=== PATIENT | female | born 1960 | race Caucasian/White ===

== ENCOUNTER → 2016-06-30 | Outpatient (CLI) | payer BC ==
[~2016-06-30] MED LIST: CHOLESTEROL MED; MULT-963 PO; ROSU5TAB PO
--- NOTE | 2016-07-01 13:21 | Diagnostic Imaging Report ---
Bilateral screening mammogram. The current study was also evaluated with a Computer Aided Detection (CAD) system. INDICATION: Screening. No current complaints stated on the questionnaire. COMPARISON: 05/28/2015. FINDINGS: The breasts are composed of scattered fibroglandular densities. There are occasional benign-appearing calcifications. Allowing for technique and positional differences, no suspicious change is seen. IMPRESSION: No significant change. ACR BI-RADS Category 2: Benign findings. Result letter will be mailed to the patient. Note: At least 10% of breast cancer is not imaged by mammography. Dictated by: Dictated on workstation # [id number]
== END ==
LOC: RAD 10:12
PROVIDERS: ATTEND Internal Medicine
DX: Z12.31 Encounter for screening mammogram for malignant neoplasm of breast (principal)

== ENCOUNTER → 2016-12-29 | Outpatient (CLI) | payer BC ==
[~2016-12-29] MED LIST changes: +ASCO-262 PO; +CALC600T12 PO; +MULT1CAP27 PO; +OMEG100032 PO; +ROSU10TA24 PO
--- NOTE | 2016-12-29 17:19 | Diagnostic Imaging Report ---
EXAMINATION: SACRUM AND COCCYX INDICATION: Sacrococcygeal pain. COMPARISON: None. FINDINGS: No fracture or malalignment. Soft tissue shadows are unremarkable. Grade 1 anterolisthesis of L5 on S1. IMPRESSION: No acute radiographic findings in the sacrum or coccyx. Dictated by: Dictated on workstation # [id number]
== END ==
LOC: RAD 16:36
PROVIDERS: ATTEND Internal Medicine
DX: M53.3 Sacrococcygeal disorders, not elsewhere classified (principal)
CPT/HCPCS: 72220

== ENCOUNTER 2017-03-10 05:29 | Outpatient (CLI) | payer BC ==
[~2017-03-10] VITALS: Ht 170.2 cm; Wt 81.6 kg
[~2017-03-10 05:29] MED LIST changes: -ASCO-262 PO; -CALC600T12 PO; -MULT1CAP27 PO; -OMEG100032 PO; -ROSU10TA24 PO
[2017-03-10] MEDS ORDERED: ASCO-262 PO (10:37)
[2017-03-10] MEDS ORDERED: ROSU10TA24 PO (10:37)
[2017-03-10] MEDS ORDERED: OMEG100032 PO (10:37)
[2017-03-10] MEDS ORDERED: CALC600T12 PO (10:37)
[2017-03-10] MEDS ORDERED: MULT1CAP27 PO (10:37)
== END 2017-03-10 10:39 ==
LOC: PREOP 05:29
PROVIDERS: ATTEND Surgery
DX: Z01.818 Encounter for other preprocedural examination (principal); Z12.11 Encounter for screening for malignant neoplasm of colon

== ENCOUNTER 2017-03-14 08:17 | Day surgery (SDC) | payer BC ==
[~2017-03-14] VITALS: Ht 170.2 cm; Wt 81.6 kg
[~2017-03-14 08:17] MED LIST changes: +ASCO-262 PO; +CALC600T12 PO; +MULT1CAP27 PO; +OMEG100032 PO; +ROSU10TA24 PO
--- OUTSIDE RECORDS SUMMARY | 2017-03-14 08:22 | XMS REPORT | Continuity of Care Document ---
Author Author [facility] Organization [facility] Address Unknown Phone Unavailable Allergies Active Description Code Type Severity Reaction Onset Reported/Identified Relationship to Patient Clinical Status Yes No Known Drug Allergies [id number] Drug Allergy Unknown N/ A 03/22/2012 Medications Problems Date Dx Coded Attending Type Code Diagnosis Diagnosed By 04/25/2014 Ot V76.12 04/25/2014 WLILA WATSON DOI Ot V76.12 05/19/2014 WATSON DO TATI Ot V76.12 06/16/2015 WATSONBALWINDER DE LA CRUZ TATI Ot Z12.31 11/25/2015 WATSON DO TATI Ot V76.12 OTH SCREEN MAMMO-MALIGN NEOPLASM OF SAI 11/25/2015 WATSONBALWINDER DE LA CRUZ TATI Ot V76.12 OTH SCREEN MAMMO-MALIGN NEOPLASM OF SAI 11/25/2015 WATSONBALWINDER DE LA CRUZ TATI Ot Z12.31 ENCNTR SCREEN MAMMOGRAM FOR MALIGNANT NE 11/25/2015 ARABELLA JUNG APRN Ot S61.411A LACERATION WITHOUT FOREIGN BODY OF RIGHT 11/25/2015 ARABELLA JUNG APRN Ot W25.XXXA CONTACT WITH [place] GL[place], INITIAL ENCOUN 11/25/2015 ARABELLA UJNG APRN Ot Y92.010 KITCHEN OF SINGLE-FAMILY (PRIVATE) HOUSE 11/25/2015 ARABELLA JUNG APRN Ot Y93.G1 ACTIVITY, FOOD PREPARATION AND CLEAN UP 11/25/2015 ARABELLA JUNG APRN Ot Y99.8 OTHER EXTERNAL CAUSE STATUS 11/25/2015 ARABELLA JUNG APRN Ot Z23 ENCOUNTER FOR IMMUNIZATION 11/26/2015 ARABELLA JUNG APRN Ot S61.411A LACERATION WITHOUT FOREIGN BODY OF RIGHT 11/26/2015 ARABELLA JUNG APRN Ot W25.XXXA CONTACT WITH [place]ARP [place], INITIAL ENCOUN 11/26/2015 ARABELLA JUNG APRN Ot Y92.010 KITCHEN OF SINGLE-FAMILY (PRIVATE) HOUSE 11/26/2015 ARABELLA JUNG APRN Ot Y93.G1 ACTIVITY, FOOD PREPARATION AND CLEAN UP 11/26/2015 ARABELLA JUNG CORE DRIER Ot Y99.8 OTHER EXTERNAL CAUSE STATUS 11/26/2015 ARABELLA JUNG CORE DRIER Ot Z23 ENCOUNTER FOR IMMUNIZATION 12/05/2015 WILLA WATSON DOI Ot V76.12 OTH SCREEN MAMMO-MALIGN NEOPLASM OF SAI 12/05/2015 WATSONWILLA BRITT DOI Ot V76.12 OTH SCREEN MAMMO-MALIGN NEOPLASM OF SAI 12/05/2015 SHIRLEY DE LA CRUZ TATI Ot Z12.31 ENCNTR SCREEN MAMMOGRAM FOR MALIGNANT NE 12/09/2015 SAI TORRES, PORSCHE Mcclure Ot S61.411D LACERATION WITHOUT FOREIGN BODY OF RIGHT 05/28/2016 FRANCO RÍOS Ot S61.412A LACERATION WITHOUT FOREIGN BODY OF LEFT 05/28/2016 FRANCO RÍOS Ot W25.XXXA CONTACT WITH SHARP GLASS, INITIAL ENCOUN 05/28/2016 FRANCO RÍOS Ot Y93.G1 ACTIVITY, FOOD PREPARATION AND CLEAN UP 05/28/2016 FRANCO RÍOS L Ot Y99.8 OTHER EXTERNAL CAUSE STATUS 05/30/2016 FRANCO RÍOS Ot S61.412A LACERATION WITHOUT FOREIGN BODY OF LEFT 05/30/2016 FRANCO RÍOS Ot W25.XXXA CONTACT WITH SHARP GLASS, INITIAL ENCOUN 05/30/2016 FRANCO RÍOS L Ot Y93.G1 ACTIVITY, FOOD PREPARATION AND CLEAN UP 05/30/2016 FRANCO RÍOS L Ot Y99.8 OTHER EXTERNAL CAUSE STATUS 06/09/2016 GREGORY TORRES, YESSENIA Herring Ot S61.411D LACERATION WITHOUT FOREIGN BODY OF RIGHT 07/01/2016 SHIRLEY DE LA CRUZ TATI Ot Z12.31 ENCNTR SCREEN MAMMOGRAM FOR MALIGNANT NE 07/01/2016 SHIRLEY DE LA CRUZ TATI Ot Z12.31 ENCNTR SCREEN MAMMOGRAM FOR MALIGNANT NE 07/14/2016 SHIRLEY DE LA CRUZ TATI Ot Z12.31 ENCNTR SCREEN MAMMOGRAM FOR MALIGNANT NE 01/02/2017 SHIRLEY DE LA CRUZ TATI Ot M53.3 SACROCOCCYGEAL DISORDERS, NOT ELSEWHERE 01/13/2017 SHIRLEY DE LA CRUZ TATI Ot M53.3 SACROCOCCYGEAL DISORDERS, NOT ELSEWHERE Procedures Results Encounters ACCT No. Visit Date/Time Discharge Status Pt. Type Provider Facility Loc./Unit Complaint [id number] 12/29/2016 16:36:00 2016 23:59:59 CLS Outpatient WATSON DO, TATI [facility] RAD TAILBONE PAIN [id number] 06/30/2016 10:12:00 2016 23:59:59 CLS Outpatient WATSON DO, TATI [facility] RAD SCREENING [id number] 06/08/2016 16:29:00 2015 17:34:00 DIS Outpatient YESSENIA JENKINS MD [facility] ER REMOVAL OF STITCHES [id number] 05/28/2016 19:50:00 2015 21:26:00 DIS Emergency FRANCO RÍOS [facility] ER CUT FINGER [id number] 12/05/2015 08:35:00 2015 08:50:00 DIS Emergency PORSCHE GIBBS MD [facility] ER [id number] 11/25/2015 21:39:00 2015 22:30:00 DIS Emergency ARABELLA JUNG APRN [facility] ER [id number] 05/28/2015 14:31:00 2014 23:59:59 CLS Outpatient WATSON DO, TATI [facility] RAD [id number] 04/25/2014 13:53:00 2013 23:59:59 CLS Outpatient WATSON DO, TATI [facility] RAD [id number] 03/19/2013 09:04:00 2012 23:59:59 CLS Outpatient WATSON DO, TATI [facility] RAD [id number] 03/14/2017 10:45:00 PEN Preadmit TWYLA PINEDO DO [facility] ENDO SCREENING [id number] 12/24/2009 11:16:00 Document Registration
[2017-03-14 08:43] VITALS: BP 105/77
[2017-03-14] MEDS ORDERED: LACTATED RINGERS 1,000 ML IV ONE (08:45)
--- NOTE | 2017-03-14 09:19 | Progress Note-Pre Operative ---
Pre-Operative Progress Note H&P Reviewed The H&P was reviewed, patient examined and no changes noted. Date Seen by Provider: Mar 14, 2017 Time Seen by Provider: 09:18 Date H&P Reviewed: Mar 14, 2017 Time H&P Reviewed: 09:19 Pre-Operative Diagnosis: screening colonoscopy TWYLA PINEDO DO Mar 14, 2017 09:19
[2017-03-14] MEDS ORDERED: PROPOFOL INJECTION 50 ML IV ONE (10:31)
[2017-03-14] MEDS ORDERED: MIDAZOLAM 5 MG/5 ML (VERSED) VIAL ONE (10:31)
--- NOTE | 2017-03-14 11:19 | Progress Note-Post Operative ---
Post-Operative Progess Note Surgeon (s)/Artificial Limb Maker (s) Surgeon TWYLA PINEDO DO Artificial Limb Maker: n/a Pre-Operative Diagnosis screening colonoscopy Post-Operative Diagnosis sigmoid colon polyp Procedure & Operative Findings Date of Procedure 03/14/17 Procedure Performed/Findings colonoscopy with hot bx polypectomy of sigmoid colon Anesthesia Type per winding inspector and tester Estimated Blood Loss Estimated blood loss (mL): none Specimens/Packing Specimens Removed sigmoid colon polyp TWYLA PINEDO DO Mar 14, 2017 11:19
--- NOTE | 2017-03-14 11:21 | Discharge Inst-Simple/Standard ---
Discharge Inst-Standard Patient Instructions/Follow Up Plan of Care/Instructions/FU: 2 weeks Hilario Activity as Tolerated: Yes Discharge Diet: Regular Diet TWYLA PINEDO DO Mar 14, 2017 11:20
[2017-03-14 11:35] VITALS: BP 112/72
[2017-03-14 12:05] VITALS: BP 112/72
[2017-03-14 12:10] VITALS: BP 112/72
--- NOTE | 2017-03-15 01:25 | OPERATIVE REPORT ---
DATE OF SERVICE: 03/14/2017 PREOPERATIVE DIAGNOSIS: Screening colonoscopy, family history of colon cancer. POSTOPERATIVE DIAGNOSIS: Sigmoid colon polyp. PROCEDURE: Colonoscopy with hot biopsy polypectomy of sigmoid colons. SURGEON: Twyla Rich DO ANESTHESIA: Per FIRE OFFICIAL. ESTIMATED BLOOD LOSS: None. COMPLICATIONS: None. INDICATIONS: The patient is a 56-year-old female for screening colonoscopy. She understands risks and benefits of procedure and wished to proceed with procedure. Consent was signed on the chart. DESCRIPTION OF PROCEDURE: The patient was taken to the endoscopy suite, placed in left lateral recumbent position. Timeout was performed. Digital rectal exam was performed and there were no palpable polyps, masses or ulcerations. Scope was inserted in the rectum and advanced all the way to the cecum with minimal difficulty. Prep was adequate. Scope was then slowly retracted back. There were no polyps, mass or ulcerations in the cecum, ascending, transverse colon. There were no polyps, mass or ulcerations within the descending colon. There was a small polyp within the sigmoid colon, which hot biopsy polypectomy was performed. Scope was continued slowly retracted back into the rectum where it was also retroflexed noting no other pathology. Scope was returned to its normal position, slowly withdrawn until completely removed. The patient tolerated the procedure well without any complications. She was taken to the recovery room in stable condition. RECOMMENDATIONS: The patient will need repeat colonoscopy in 5 years due to family history of colon cancer and sigmoid colon polyp. The patient will follow up in the office in approximately 2 weeks to discuss pathology results and see if she has any further questions. Job ID: [id number] DocumentID: [id number] Dictated Date: 03/14/2017 11:24:49 Aircraft Assembler Date: 03/15/2017 01:24:38 Dictated By: TWYLA RICH DO
== END 2017-03-14 12:10 | disposition home or self-care (01) ==
LOC: ENDO 08:17
PROVIDERS: ATTEND Surgery
DX: Z79.899 Other long term (current) drug therapy; Z80.0 Family history of malignant neoplasm of digestive organs; E78.5 Hyperlipidemia, unspecified; K63.5 Polyp of colon; Z12.11 Encounter for screening for malignant neoplasm of colon

== ENCOUNTER → 2017-07-06 | Outpatient (RCR) | payer BC ==
[~2017-07-06] MED LIST changes: -ROSU10TA24 PO; +ROSU10TA26 PO
== END | disposition home or self-care (01) ==
PROVIDERS: ATTEND Orthopaedic Surgery Orthopaedic Surgery of the Spine
DX: M47.816 Spondylosis without myelopathy or radiculopathy, lumbar region (principal); M43.16 Spondylolisthesis, lumbar region

== ENCOUNTER → 2017-07-11 | Outpatient (CLI) | payer BC ==
--- NOTE | 2017-07-11 10:28 | Diagnostic Imaging Report ---
INDICATION: Routine screening. Comparison is made with prior study from 06/30/2016 and 05/28/2015. The current study was also evaluated with a Computer Aided Detection (CAD) system. FINDINGS: Scattered parenchymal densities are identified bilaterally. No dominant mass or malignant appearing microcalcifications are seen. The axillae are unremarkable. IMPRESSION: No mammographic features suspicious for malignancy are identified. ACR BI-RADS Category 1: Negative. Result letter will be mailed to the patient. Note: At least 10% of breast cancer is not imaged by mammography. Dictated by: Dictated on workstation # [id number]
== END ==
LOC: RAD 09:10
PROVIDERS: ATTEND Internal Medicine
DX: Z12.31 Encounter for screening mammogram for malignant neoplasm of breast (principal)
CPT/HCPCS: 77067

== ENCOUNTER 2017-08-30 08:03 | Outpatient (RCR) | payer BC | END 2017-08-30 10:20 | disposition home or self-care (01) | PROVIDERS: ATTEND Orthopaedic Surgery Orthopaedic Surgery of the Spine | DX: M47.816 Spondylosis without myelopathy or radiculopathy, lumbar region (principal); M43.16 Spondylolisthesis, lumbar region ==

== ENCOUNTER → 2018-07-12 | Outpatient (CLI) | payer BC ==
[~2018-07-12] MED LIST changes: -ROSU10TA26 PO; +ROSU10TA27 PO
--- NOTE | 2018-07-12 21:48 | Diagnostic Imaging Report ---
INDICATION: Screening. The current study was also evaluated with a Computer Aided Detection (CAD) system. Comparison made with prior examination 07/11/2017 back through 02/29/2012. 3-D tomosynthesis was performed and reviewed. FINDINGS: There are scattered fibroglandular densities bilaterally. There are a few benign type calcifications. There is no dominant mass, spiculated lesion or suspicious calcification identified. Skin, nipples and axilla are unremarkable. IMPRESSION: Benign. ACR BI-RADS Category 2: Benign findings. Result letter will be mailed to the patient. Note: At least 10% of breast cancer is not imaged by mammography. Dictated by: Dictated on workstation # [id number]
== END ==
LOC: RAD 08:06
PROVIDERS: ATTEND Internal Medicine
DX: Z12.31 Encounter for screening mammogram for malignant neoplasm of breast (principal)
CPT/HCPCS: 77067

== ENCOUNTER → 2020-03-06 | Outpatient (CLI) | payer BC ==
[~2020-03-06] MED LIST changes: -CALC600T12 PO; +CLC600T PO; -ROSU10TA27 PO; +ROSU10TA28 PO
--- NOTE | 2020-03-09 14:16 | Diagnostic Imaging Report ---
Digital mammogram. Bilateral screening This study was compared to the prior exams of 07/12/2018, 07/11/2017 and 06/30/2016. At this time there are no current complaints. The current study was also evaluated with a Computer Aided Detection (CAD) system. FINDINGS: There are scattered fibroglandular densities in both breasts which could obscure a lesion. Overall, there does not appear to have been any significant change when compared to the prior exam. No primary or secondary sign of malignancy is noted. IMPRESSION: There is no radiographic evidence for malignancy ACR BI-RADS Category 1: Negative. Result letter will be mailed to the patient. Note: At least 10% of breast cancer is not imaged by mammography. Dictated by: Dictated on workstation # [id number]
== END ==
LOC: RAD 12:34
PROVIDERS: ATTEND Internal Medicine
DX: Z12.31 Encounter for screening mammogram for malignant neoplasm of breast (principal)
CPT/HCPCS: 77063; 77067

== ENCOUNTER 2020-06-17 04:37 | Inpatient (IN) | payer BC ==
[~2020-06-17] VITALS: Ht 170 cm; Wt 81.7 kg
--- NOTE | 2020-06-17 05:03 | ED Respiratory ---
General Chief Complaint: Respiratory Problems Stated Complaint: COVID+,SOB Source: patient Exam Limitations: no limitations (CHINYERE SOLIS MD) History of Present Illness Date Seen by Provider: Jun 17, 2020 Time Seen by Provider: 05:00 Initial Comments Patient is a 59-year-old female who presents to the emergency department today with a chief complaint of shortness of breath and low oxygen saturations at home and 88%. Patient is on day 12 of quarantine with a positive Covid diagnosis around June 08. Patient states she has been using an inhaler over the course of the last 3 days with minimal relief of her symptoms. She has a productive cough. She denies fevers or chills. She has had nasal congestion without rhinorrhea. Patient denies any GI or symptoms. No swelling in her legs or cramping in her calves. Patient states that she has been on antibiotics within the last couple of days. She is currently on azithromycin as well as Decadron 4 mg p.o. daily. Patient's primary care physician is Dr. Watson. All other review of systems reviewed and negative except as stated above. Timing/Duration: other (3 days) Severity: moderate Prior Episodes/Possible Cause: illness exposure Modifying Factors: Improves With Albuterol Inhaler, Improves With Coughing Associated Symptoms: nasal congestion (CHINYERE SOLIS MD) Allergies and Home Medications Allergies Coded Allergies: No Known Drug Allergies (Unverified , 03/22/12) Home Medications Ascorbate Calcium 500 Mg Tablet, 500 MG PO DAILY, (Reported) Calcium Carbonate 600 Mg Tablet, 600 MG PO DAILY, (Reported) Multivitamin 1 Each Capsule, 1 EACH PO DAILY, (Reported) [place]-3/Dha/Epa/Fish Oil 1,000 Mg Capsule, 1,000 MG PO DAILY, (Reported) Rosuvastatin Calcium 10 Mg Tablet, 10 MG PO DAILY, (Reported) Patient Home Medication List Home Medication List Reviewed: Yes (CHINYERE SOLIS MD) Review of Systems Review of Systems Constitutional: see HPI, malaise EENTM: nose congestion Respiratory: cough, dyspnea on exertion, short of breath Cardiovascular: no symptoms reported Gastrointestinal: no symptoms reported Genitourinary: no symptoms reported : No Musculoskeletal: no symptoms reported Skin: no symptoms reported Psychiatric/Neurological: No Symptoms Reported (CHINYERE SOLIS MD) All Other Systems Reviewed Negative Unless Noted: Yes (CHINYERE SOLIS MD) Past Fmxnisw-Zjhqgu-Najsnd Hx Patient Social History Alcohol Use: Denies Use Recreational Drug Use: No Smoking Status: Former Smoker Type Used: Cigarettes Recent Foreign Travel: No Contact w/Someone Who Travel: No Recent Hopitalizations: No (CHINYERE SOLIS MD) Immunizations Up To Date Tetanus Booster (TDap): Less than 5yrs (CHINYERE SOLIS MD) Seasonal Allergies Seasonal Allergies: No (CHINYERE SOLIS MD) Past Medical History Surgeries: Yes (BREAST REDUCTION) Appendectomy Respiratory: No Cardiac: Yes High Cholesterol Neurological: No Genitourinary: No Gastrointestinal: No Musculoskeletal: No Endocrine: No HEENT: No Cancer: No Psychosocial: No Integumentary: No Blood Disorders: No (CHINYERE SOLIS MD) Physical Exam Vital Signs - First Documented 06/17/20 04:49 Temp 38.0 Pulse 89 Resp 22 B/P (MAP) 120/82 (95) Pulse Ox 93 O2 Delivery Nasal Cannula O2 Flow Rate 4.00 (ROSA KUHN MD) Capillary Refill : (CHINYERE SOLIS MD) Height: 5'7.00" Weight: 180lbs. 0.0oz. [id number]; 28.2 BMI Method:Stated General Appearance: WD/WN, no apparent distress HEENT: PERRL/EOMI Neck: full range of motion, supple, normal inspection Respiratory: lungs clear, normal breath sounds, no respiratory distress, no accessory muscle use, other Cardiovascular: regular rate, rhythm, no murmur (Slightly tachypneic) Gastrointestinal: non tender, soft Extremities: non-tender, normal inspection, no pedal edema, no calf tenderness Neurologic/Psychiatric: no motor/sensory deficits, alert, normal mood/affect, oriented x 3 Skin: normal color, warm/dry (CHINYERE SOLIS MD) Focused Exam Lactate Level 06/17/20 05:00: Lactic Acid Level 2.38*H 06/17/20 07:18: Lactic Acid Level 1.88 (ROSA KUHN MD) Lactic Acid Level Laboratory Tests Test 06/17/20 05:00 06/17/20 07:18 Lactic Acid Level 2.38 MMOL/L (0.50-2.00) *H 1.88 MMOL/L (0.50-2.00) (ROSA KUHN MD) Procedures/Interventions Suture Size: 5-0 (CHINYERE SOLIS MD) Progress/Results/Core Measures Suspected Sepsis SIRS Temperature: Pulse: Respiratory Rate: Laboratory Tests 06/17/20 05:00: White Blood Count 10.8 Blood Pressure / Mean: 06/17/20 05:00: Lactic Acid Level 2.38*H Laboratory Tests 06/17/20 05:00: Creatinine 0.80, Platelet Count 285, Total Bilirubin 0.5 (CHINYERE SOLIS MD) Results/Orders Lab Results Laboratory Tests Test 06/17/20 05:00 06/17/20 07:18 Range/Units White Blood Count 10.8 4.3-11.0 10^3/uL Red Blood Count 4.87 3.80-5.11 10^6/uL Hemoglobin 14.4 11.5-16.0 g/dL Hematocrit 42 35-52 % Mean Corpuscular Volume 87 80-99 fL Mean Corpuscular Hemoglobin 30 25-34 pg Mean Corpuscular Hemoglobin Concent 34 32-36 g/dL Red Cell Distribution Width 12.2 10.0-14.5 % Platelet Count 285 130-400 10^3/uL Mean Platelet Volume 10.5 9.0-12.2 fL Immature Granulocyte % (Auto) 1 % Neutrophils (%) (Auto) 83 H 42-75 % Lymphocytes (%) (Auto) 13 12-44 % Monocytes (%) (Auto) 3 0-12 % Eosinophils (%) (Auto) 0 0-10 % Basophils (%) (Auto) 0 0-10 % Neutrophils # (Auto) 9.0 H 1.8-7.8 10^3/uL Lymphocytes # (Auto) 1.4 1.0-4.0 10^3/uL Monocytes # (Auto) 0.3 0.0-1.0 10^3/uL Eosinophils # (Auto) 0.0 0.0-0.3 10^3/uL Basophils # (Auto) 0.0 0.0-0.1 10^3/uL Immature Granulocyte # (Auto) 0.1 0.0-0.1 10^3/uL D-Dimer 0.33 0.00-0.49 UG/ML Sodium Level 134 L 135-145 MMOL/L Potassium Level 4.2 3.6-5.0 MMOL/L Chloride Level 102 98-107 MMOL/L Carbon Dioxide Level 21 21-32 MMOL/L Anion Gap 11 5-14 MMOL/L Blood Urea Nitrogen 15 7-18 MG/DL Creatinine 0.80 0.60-1.30 MG/DL Estimat Glomerular Filtration Rate > 60 BUN/Creatinine Ratio 19 Glucose Level 159 H 70-105 MG/DL Lactic Acid Level 2.38 *H 1.88 0.50-2.00 MMOL/L Calcium Level 8.7 8.5-10.1 MG/DL Corrected Calcium 9.2 8.5-10.1 MG/DL Total Bilirubin 0.5 0.1-1.0 MG/DL Aspartate Amino Transf (AST/SGOT) 41 H 5-34 U/L Alanine Aminotransferase (ALT/SGPT) 50 0-55 U/L Alkaline Phosphatase 55 40-136 U/L C-Reactive Protein High Sensitivity 5.09 H 0.00-0.50 MG/DL Total Protein 7.3 6.4-8.2 GM/DL Albumin 3.4 3.2-4.5 GM/DL Procalcitonin 0.06 <0.10 NG/ML (ROSA KUHN MD) My Orders Orders - RSOA KUHN MD Blood Culture (06/17/20 06:59) Dexamethasone Injection (Decadron Inje (06/17/20 08:30) Ceftriaxone For Iv Use (Rocephin For I (06/17/20 08:30) (ROSA KUHN MD) Medications Given in ED Current Medications Medications Dose Ordered Sig/Leno Route Start Time Stop Time Status Last Admin Dose Admin Iohexol 100 ml ONCE ONCE IV 06/17/20 06:30 06/17/20 06:31 DC 06/17/20 07:01 74 ML Sodium Chloride 100 ml ONCE ONCE IV 06/17/20 06:30 06/17/20 06:31 DC 06/17/20 07:01 80 ML (ROSA KUHN MD) Vital Signs/I&O 06/17/20 04:49 Temp 38.0 Pulse 89 Resp 22 B/P (MAP) 120/82 (95) Pulse Ox 93 O2 Delivery Nasal Cannula O2 Flow Rate 4.00 (ROSA KUHN MD) Vital Signs/I&O Capillary Refill : (CHINYERE SOLIS MD) Progress Note : Time: 05:05 Progress Note 59-year-old female presents with shortness of breath and hypoxia. Evaluation today includes a physical exam. Patient is noted to be 88 to 89% oxygen saturat ions on room air at presentation. She demonstrates some tachypnea with slightly increased work of breathing. Lungs are clear. Patient bounces up to 93 to 94% on 4 L of oxygen per nasal cannula. Patient evaluation also includes a chest x- ray, CBC, Chem-12, CRP, procalcitonin, blood cultures, lactic acid. Patient will be treated with albuterol MDI. Patient disposition to be determined. [address] Watson; will CT chest and she will admit (CHINYERE SOLIS MD) Progress Note : Time: 08:29 Progress Note I assumed care of this patient from Dr. Solis at 06: 00. Due to fullness in the right hilum a CT of the chest was obtained. The CT demonstrated findings of groundglass opacity consistent with COVID-19 disease. No other acute findings were appreciated. Patient has not yet taken her antibiotics or dexamethasone today. We will give dexamethasone 6 mg IV and Rocephin in the ER. She will continue on a azithromycin on the floor as well. Case was discussed with Dr. Watson and admission orders were written. (ROSA KUHN MD) Diagnostic Imaging Diagonstic Imaging: Xray Plain Films/CT/US/NM/MRI: chest Comments Chest x-ray viewed by me and report reviewed. See report below: NAME: NICHOLAS PEREZ MED REC#: [id number] PT STATUS: REG ER : 1960 PHYSICIAN: CHINYERE SOLIS MD ADMIT DATE: 06/17/20/ER Signed Date of Exam:06/17/20 CHEST 1 VIEW, AP/PA ONLY INDICATION: Short of breath. Positive for COVID Upright chest shows normal heart size and vascularity. There is slight fullness in the right hilum. Adenopathy at this site is a possibility. No peripheral mass or alveolar infiltrate is seen. There are bilateral patchy interstitial infiltrates slightly worse on the right than the left. There is no effusion or pneumothorax. IMPRESSION: There are infiltrates present consistent with COVID pneumonia. There is slight fullness of the right hilum and continued follow-up is recommended. Dictated by: Dictated on workstation # [id number] Dict: 06/17/20 0650 Trans: 06/17/20752 JAGDISH [id number] Interpreted by: DENNIS BAUMAN MD Electronically signed by: DENNIS BAUMAN MD 06/17/203 Diagonstic Imaging: CT Plain Films/CT/US/NM/MRI: chest Comments CT chest viewed by me and report reviewed. See report below: NAME: NICHOLAS PEREZ [facility] REC#: [id number] PT STATUS: REG ER : 1960 PHYSICIAN: CHINYERE SOLIS MD ADMIT DATE: 06/17/20/ER Signed Date of Exam:06/17/20 CT CHEST W PROCEDURE: CT chest with contrast only. TECHNIQUE: Multiple contiguous axial images were obtained through the chest after administration of intravenous contrast. Auto Exposure Controls were utilized during the CT exam to meet ALARA standards for radiation dose reduction. INDICATION: COVID positive. Infiltrates. There are patchy bilateral interstitial and groundglass infiltrates in a pattern consistent with COVID pneumonia. No mass or alveolar infiltrate is seen. There is no effusion or pneumothorax. There is mild cardiomegaly. There is no mediastinal mass or adenopathy. The fullness in the right hilum secondary to prominent vessels. CTA was not performed but no pulmonary embolus is evident. There is no acute bony abnormality. IMPRESSION: There are bilateral infiltrates consistent with COVID pneumonia. No mass or adenopathy is seen. Not mentioned in the body the report is a small hiatal hernia. Dictated by: Dictated on workstation # [id number] Dict: 06/17/20 0709 Trans: 06/17/20752 JAGDISH [id number] Interpreted by: DENNIS BAUMAN MD Electronically signed by: DENNIS BAUMAN MD 06/17/20 075 (ROSA KUHN MD) Departure Communication (Admissions) Time/Spoke to Admitting Phy: 08:20 Dr. Watson (ROSA KUHN MD) Impression Primary Impression: Coronavirus infection Additional Impression: Hypoxia Disposition: ADMITTED INPATIENT Condition: Stable Admissions Decision to Admit Reason: Admit from ER (General) Decision to Admit/Date: Jun 17, 2020 Time/Decision to Admit Time: 06:00 (ROSA KUHN MD) Departure-Patient Inst. Referrals: TATI WATSON DO (PCP/Family) Primary Care Physician CHINYERE SOLIS MD Jun 17, 2020 05:03 ROSA KUHN MD Jun 17, 2020 08:32
[2020-06-17 05:22] LABS: BASOPHILS % (AUTO) 0 % (0-10); EOSINOPHILS % (AUTO) 0 % (0-10); HEMATOCRIT 42 % (35-52); HEMOGLOBIN 14.4 g/dL (11.5-16.0); LYMPHOCYTES # (AUTO) 1.4 10^3/uL (1.0-4.0); LYMPHOCYTES % (AUTO) 13 % (12-44); MEAN CORPUSCULAR HEMOGLOBIN 30 pg (25-34); MEAN CORPUSCULAR HGB CONC 34 g/dL (32-36); MEAN CORPUSCULAR VOLUME 87 fL (80-99); MEAN PLATELET VOLUME 10.5 fL (9.0-12.2); MONOCYTES # (AUTO) 0.3 10^3/uL (0.0-1.0); MONOCYTES % (AUTO) 3 % (0-12); NEUTROPHILS % (AUTO) 83 % (42-75); PLATELET COUNT 285 10^3/uL (130-400); WHITE BLOOD COUNT 10.8 10^3/uL (4.3-11.0)
[2020-06-17] MEDS ORDERED: LORazepam 0.5 MG (ATIVAN) TABLET PO STA (05:25)
[2020-06-17 05:26] LABS: ALBUMIN 3.4 GM/DL (3.2-4.5); CHLORIDE 102 MMOL/L (98-107); POTASSIUM 4.2 MMOL/L (3.6-5.0); SODIUM 134 MMOL/L (135-145)
[2020-06-17 05:27] LABS: CALCIUM 8.7 MG/DL (8.5-10.1)
[2020-06-17 05:29] LABS: GLUCOSE 159 MG/DL (70-105); TOTAL PROTEIN 7.3 GM/DL (6.4-8.2)
[2020-06-17 05:30] LABS: BILIRUBIN,TOTAL 0.5 MG/DL (0.1-1.0); CARBON DIOXIDE 21 MMOL/L (21-32)
[2020-06-17 05:32] LABS: ALKALINE PHOSPHATASE 55 U/L (40-136); GFR ESTIMATED > 60
[2020-06-17 05:33] LABS: BUN/CREATININE RATIO 19
[2020-06-17 05:35] LABS: ALANINE AMINOTRANSFERASE 50 U/L (0-55)
[2020-06-17] MEDS ORDERED: LACTATED RINGERS 1,000 ML IV SCH (05:45)
[2020-06-17] MEDS ORDERED: RT-ALBUTEROL INHALER HFA (VENTOLIN HFA) 18 GM IH SCH (06:00)
[2020-06-17] MEDS ORDERED: IOHEXOL 350 MG/ML 100 ML (OMNIPAQUE 350) VIAL IV ONE (06:30)
[2020-06-17] MEDS ORDERED: HOLD METFORMIN - RECEIVED CONTRAST 20 ML VIAL IV SCH (06:30)
[2020-06-17] MEDS ORDERED: NS 100 ML (IVPB) BAG IV ONE (06:30)
--- NOTE | 2020-06-17 06:47 | NUR ---
PT , AVELINO, CONTACTED REGARDING PT UPDATE.
--- NOTE | 2020-06-17 07:00 | Diagnostic Imaging Report ---
INDICATION: Short of breath. Positive for COVID Upright chest shows normal heart size and vascularity. There is slight fullness in the right hilum. Adenopathy at this site is a possibility. No peripheral mass or alveolar infiltrate is seen. There are bilateral patchy interstitial infiltrates slightly worse on the right than the left. There is no effusion or pneumothorax. IMPRESSION: There are infiltrates present consistent with COVID pneumonia. There is slight fullness of the right hilum and continued follow-up is recommended. Dictated by: Dictated on workstation # [id number]
--- NOTE | 2020-06-17 07:14 | Diagnostic Imaging Report ---
PROCEDURE: CT chest with contrast only. TECHNIQUE: Multiple contiguous axial images were obtained through the chest after administration of intravenous contrast. Auto Exposure Controls were utilized during the CT exam to meet ALARA standards for radiation dose reduction. INDICATION: COVID positive. Infiltrates. There are patchy bilateral interstitial and groundglass infiltrates in a pattern consistent with COVID pneumonia. No mass or alveolar infiltrate is seen. There is no effusion or pneumothorax. There is mild cardiomegaly. There is no mediastinal mass or adenopathy. The fullness in the right hilum secondary to prominent vessels. CTA was not performed but no pulmonary embolus is evident. There is no acute bony abnormality. IMPRESSION: There are bilateral infiltrates consistent with COVID pneumonia. No mass or adenopathy is seen. Not mentioned in the body the report is a small hiatal hernia. Dictated by: Dictated on workstation # [id number]
[2020-06-17] MEDS ORDERED: cefTRIAXone FOR IV USE 1,000 MG in WATER (STERILE) FOR INJECTION 10 ML IV ONE (08:30)
--- NOTE | 2020-06-17 09:47 | NUR ---
Pt is Yarsani. Nurse asked pt about anointing and she desires it. Chronic Disease Epidemiologist notified SEAN mcdowell.
[2020-06-17] MEDS ORDERED: ONDANSETRON 4 MG/2 ML (SDV) Z0FRAN IV PRN (10:00)
[2020-06-17] MEDS ORDERED: CATHETER FLUSH 10 ML SYR IV PRN (10:00)
[2020-06-17] MEDS ORDERED: AZITHROMYCIN 500 MG/NS 250 ML IVPB IV NR ×2 (10:00)
[2020-06-17] MEDS ORDERED: ACETAMINOPHEN 500 MG TAB (TYLENOL) PO PRN (10:00)
[2020-06-17] MEDS: LACTATED RINGERS 1,000 ML IV SCH ×3 (10:35→20:23)
--- NOTE | 2020-06-17 11:15 | History & Physical ---
History of Present Illness HPI/Chief Complaint CC: SOB and lethargy HPI: This is a 62yoWF clinic pt of [facility] who has a PMH of HLP and border line DM who presents with Covid-19 11 days after swab, SOB and lethargy. She was found to have elevated lactic acid due to dehydration and CXR showed some abnormalities so CT scan was obtained and that revealed just Covid-19 ground glass infiltrates. She was placed on IV antibiotics, convalescent plasma, and IV Decadron and will be monitored closely and I will consult Dr. Herbert due to high risk for decompensation. Source: patient, RN/MD Exam Limitations: no limitations Date Seen 06/17/20 Time Seen by a Provider: 09:30 Attending Physician Yari Jansen DO PCP Yari Jansen DO Referring Physician Date of Admission Jun 17, 2020 at 08:24 Home Medications & Allergies Home Medications Reviewed patient Home Medication Reconciliation performed by pharmacy medication reconciliations production technician and/or nursing. Patients Allergies have been reviewed. Allergies Allergies Coded Allergies No Known Drug Allergies ([id number]/11/12) Past Jtpxsqa-Evstyu-Ikscxk Hx Past Med/Social Hx: Reviewed Nursing Past Med/Soc Hx, Reviewed and Corrections made Patient Social History Marrital Status: Employed/Student: employed Alcohol Use: Denies Use Recreational Drug Use: No Smoking Status: Former Smoker Type Used: Cigarettes Recent Foreign Travel: No Contact w/other who traveled: No Recent Hopitalizations: No Recent Infectious Disease Expo: No Immunizations Up To Date Tetanus Booster (TDap): Less than 5yrs Date of Influenza Vaccine: Feb 11, 2021 Seasonal Allergies Seasonal Allergies: No Past Medical History Surgeries: Appendectomy Cardiac: High Cholesterol : No Menopausal Musculoskeletal: Chronic Back Pain Endocrine: Diabetes, Non-Insulin dep History of Blood Disorders: No Review of Systems Constitutional: see HPI, malaise, weakness Respiratory: cough, dyspnea on exertion Physical Exam Physical Exam Vital Signs Vital Signs - First Documented 06/17/20 06/17/20 04:49 13:46 Temp 38.0 Pulse 89 Resp 22 B/P (MAP) 120/82 (95) Pulse Ox 93 O2 Delivery Nasal Cannula O2 Flow Rate 4.00 FiO2 36 Capillary Refill : Less Than 3 Seconds Height, Weight, BMI Height: 5'7.00" Weight: 180lbs. 0.0oz. 81.963653lf; 26.00 BMI Method:Stated General Appearance: WD/WN, Anxious, Mild Distress, Other (acutely ill) Eyes: Bilateral Eye Normal Inspection, Bilateral Eye PERRL HEENT: PERRL/EOMI, Normal ENT Inspection, Pharynx Normal Neck: Full Range of Motion, Normal Inspection, Non Tender, Supple, Carotid Bruit Respiratory: Chest Non Tender, Lungs Clear, No Accessory Muscle Use, No Respiratory Distress, Decreased Breath Sounds Cardiovascular: Regular Rate, Rhythm, No Edema, No Gallop, No JVD, No Murmur, Normal Peripheral Pulses Gastrointestinal: Normal Bowel Sounds, No Organomegaly, No Pulsatile Mass, Non Tender, Soft Back: Normal Inspection, No CVA Tenderness, No Vertebral Tenderness Extremity: Normal Capillary Refill, Normal Inspection, Normal Range of Motion, Non Tender, No Calf Tenderness, No Pedal Edema Neurologic/Psychiatric: Alert, Oriented x3, No Motor/Sensory Deficits, Normal Mood/Affect Skin: Normal Color, Warm/Dry Lymphatic: No Adenopathy Results Results/Procedures Labs Laboratory Tests 06/17/20 05:00 Patient resulted labs reviewed. Assessment/Plan Admission Diagnosis Assessment: COVID-19 PNA Sepsis Hypoxia Bacterial PNA superimposed HLP DM IVF IV abx Dr Herbert consult appreciated High risk for decompensation Lovenox Decadron CVP Admission Status: Inpatient Order (span 2 midnights) Reason for Inpatient Admission: COVID-19 PNA Diagnosis/Problems Diagnosis/Problems (1) Coronavirus infection Status: Acute (2) Hypoxia Status: Acute Clinical Quality Measures DVT/VTE Risk/Contraindication: Risk Factor Score Per Nursin RFS Level Per Nursing on Admit: 4+=Very High YARI JANSEN DO Jun 17, 2020 11:15
--- NOTE | 2020-06-17 11:43 | Pulmonary Consultation ---
History of Present Illness History of Present Illness Date Seen by Provider: Jun 17, 2020 Time Seen by Provider: 10:18 Date of Admission Allergies and Home Medications Allergies Coded Allergies: No Known Drug Allergies (Unverified , 03/22/12) Home Medications Albuterol Sulfate 18 Gm Hfa.aer.ad, 2 PUFF INH QID PRN for SHORTNESS OF BREATH, (Reported) Ascorbate Calcium 500 Mg Tablet, 500 MG PO DAILY, (Reported) Aspirin 81 Mg Tablet.dr, 81 MG PO DAILY, (Reported) Atorvastatin Calcium 10 Mg Tablet, 10 MG PO DAILY, (Reported) Azithromycin 250 Mg Tablet, 250 MG PO DAILY, (Reported) FILLED 06-08-2020 #6/5 DAY SUPPLY Cholecalciferol (Vitamin D3) 25 Mcg Capsule, 25 MCG PO DAILY, (Reported) Dexamethasone 4 Mg Tablet, 6 MG PO DAILY, (Reported) FILLED 06-08-2020 #15/10 TAKES 1 & OF THE 4MG TABS Story-3/Dha/Epa/Fish Oil 1,000 Mg Capsule, 1,000 MG PO DAILY, (Reported) Past Ibjhazu-Avqdfd-Adhser Hx Patient Social History Alcohol Use: Denies Use Recreational Drug Use: No Smoking Status: Former Smoker Type Used: Cigarettes Recent Foreign Travel: No Contact w/Someone Who Travel: No Recent Infectious Disease Expo: No Recent Hopitalizations: No Immunizations Up To Date Tetanus Booster (TDap): Less than 5yrs Date of Influenza Vaccine: Feb 11, 2021 Seasonal Allergies Seasonal Allergies: No Past Medical History Surgeries: Yes (BREAST REDUCTION) Appendectomy Respiratory: No Cardiac: Yes High Cholesterol Neurological: No : 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 0.0oz. 81.306947ar; 26.00 BMI Method:Stated Exam Exam Vital Signs Date Time Temp Pulse Resp B/P (MAP) Pulse Ox O2 Delivery O2 Flow Rate FiO2 06/17/20 11:03 93 High Flow N/C 5.00 06/17/20 09:02 67 20 112/67 97 4.00 06/17/20 04:49 38.0 89 22 120/82 (95) 93 Nasal Cannula 4.00 Height & Weight Height: 5'7.00" Weight: 180lbs. 0.0oz. 81.148313nm; 26.00 BMI Method:Stated Capillary Refill: Less Than 3 Seconds Gastrointestinal: non tender, soft Results Lab Laboratory Tests 06/17/20 05:00 Assessment/Plan Assessment/Plan COVID 19 PNA with worsening hypoxemia -CXR -Decadron -CVP -Oxygen -Covid diagnosis June 08. PNA bacterial with sepsis -Repeat PCT -Rocephin and azithromycin -Diehl cultures pending Metabolic acidosis -Monitor Elevated LFTs JEANNINE MENDEZ DO Jun 17, 2020 11:43
[2020-06-17 12:00] VITALS: BP 110/70
[2020-06-17] MEDS ORDERED: ENOXAPARIN 40 MG/0.4 ML (LOVENOX) SYR SC SCH (12:00)
[2020-06-17] MEDS ORDERED: ALBU18HF2 INH (12:37)
[2020-06-17] MEDS ORDERED: AZIT250T12 PO (12:37)
[2020-06-17] MEDS ORDERED: ASPI-1238 PO (12:37)
[2020-06-17] MEDS ORDERED: ATOR10TA PO (12:37)
[2020-06-17] MEDS ORDERED: CHOL10007 PO (12:37)
[2020-06-17] MEDS ORDERED: DEXA4TAB PO (12:37)
--- NOTE | 2020-06-17 12:38 | NUR ---
SPOKE WITH THE PT (CALLED THE ROOM PHONE),WENT THRU THE EXT MED HISTORY AND CALLED [facility] TO COMPLETE THE MED REC ON 06-08-2020 PT FILLED DEXAMETHASONE, AN ALBUTEROL INHALER AND A Z-EMANUEL AND ACCORDING TO THE PT SHE WAS STILL TAKING AND HAD NOT FINISHED THE THERAPIES ATORVASTATIN 10MG WAS FILLED 05-21-2020 #90/90DS AT [facility] OTC MEDS: FISH OIL VIT D VIT C ASPIRIN 81MG
[2020-06-17 13:46] VITALS: BP 120/82
[2020-06-17] MEDS ORDERED: RT-ALBUTEROL INHALER HFA (VENTOLIN HFA) 18 GM IH PRN (14:45)
[2020-06-17 15:28] LABS: ABG BASE EXCESS -0.7 MMOL/L (-2.5-2.5); ABG OXYGEN SATURATION 97 % (94-100); ABG PCO2 37 MMHG (35-45); ABG PH 7.42 (7.37-7.43); ABG PO2 86 MMHG (79-93); ABG TCO2 24.4 MMOL/L (21.0-31.0); ALLENS TEST YES-POS; INSPIRED O2 4; VENTILATOR NO
[2020-06-17 16:12] VITALS: BP 113/70
[2020-06-17] MEDS: RT-ALBUTEROL INHALER HFA (VENTOLIN HFA) 18 GM IH SCH ×2 (18:38→22:46)
[2020-06-17 19:27] VITALS: BP 115/64
[2020-06-17] MEDS: FAMOTIDINE 20MG/2ML IV (PEPCID) IV SCH (21:02)
[2020-06-17] MEDS: ENOXAPARIN 40 MG/0.4 ML (LOVENOX) SYR SC SCH (21:03)
[2020-06-17] MEDS: ALPRAZolam 0.5 MG (XANAX) TAB PO PRN (21:34)
[2020-06-17 23:40] VITALS: BP 120/67
[2020-06-18] VITALS (8 sets, daily range): BP systolic 110–127; BP diastolic 55–75
[2020-06-18] MEDS: RT-ALBUTEROL INHALER HFA (VENTOLIN HFA) 18 GM IH SCH ×6 (02:06→21:41)
--- NOTE | 2020-06-18 05:09 | Progress Note ---
Subjective Date Seen by a Provider: Jun 18, 2020 Time Seen by a Provider: 10:00 Subjective/Events-last exam Having more difficult time today Prone seems to be helpful Conferred with Dr Herbert Updated Vapotherm needed now Schedule Ativan 0.25mg IV Q4 hours for anxiety Review of Systems Pulmonary: Dyspnea, Cough Focused Exam Lactate Level 06/17/20 05:00: Lactic Acid Level 2.38*H 06/17/20 07:18: Lactic Acid Level 1.88 Objective Exam Last Set of Vital Signs Vital Signs Date Time Temp Pulse Resp B/P (MAP) Pulse Ox O2 Delivery O2 Flow Rate FiO2 06/18/20 02:07 90 High Flow N/C 5.00 06/18/20 01:23 53 06/17/20 23:40 36.3 20 120/67 (84) 06/17/20 13:46 36 Capillary Refill : Less Than 3 Seconds I&O Intake and Output 06/17/20 23:59 Intake Total 2140 ml Balance 2140 ml Intake Oral 1140 ml IV Total 1000 ml # Voids 4 Daily Weight Change No No General: Alert, Oriented X3, Cooperative, No Acute Distress Lungs: Clear to Auscultation, Normal Air Movement, Other (diminished) Heart: Regular Rate Abdomen: Normal Bowel Sounds Neuro: Normal Gait Results Lab Laboratory Tests 06/17/20 07:18: Lactic Acid Level 1.88 06/17/20 15:20: Blood Gas Puncture Site RT RAD, Blood Gas Patient Temperature 37.0, Arterial Blood pH 7.42, Arterial Blood Partial Pressure CO2 37, Arterial Blood Partial Pressure O2 86, Arterial Blood HCO3 23, Arterial Blood Total CO2 24.4, Arterial Blood Oxygen Saturation 97, Arterial Blood Base Excess -0.7, Jet Test YES-POS, Blood Gas Ventilator Setting NO, Blood Gas Inspired Oxygen 4 Assessment/Plan Assessment/Plan Assess & Plan/Chief Complaint Assessment: COVID-19 PNA Sepsis Hypoxia Bacterial PNA superimposed HLP DM Plan: IVF IV abx Dr Herbert consult appreciated High risk for decompensation Lovenox Decadron CVP 06/18/20: HLIVF Lasix one dose Vapotherm IV abx CVP when arrives Diagnosis/Problems Diagnosis/Problems (1) Coronavirus infection Status: Acute (2) Hypoxia Status: Acute Clinical Quality Measures DVT/VTE Risk/Contraindication: Risk Factor Score Per Nursin RFS Level Per Nursing on Admit: 4+=Very High TATI WATSON DO Jun 18, 2020 05:09
[2020-06-18 06:02] LABS: BASOPHILS % (AUTO) 0 % (0-10); EOSINOPHILS % (AUTO) 0 % (0-10); HEMATOCRIT 38 % (35-52); HEMOGLOBIN 12.7 g/dL (11.5-16.0); LYMPHOCYTES # (AUTO) 1.1 10^3/uL (1.0-4.0); LYMPHOCYTES % (AUTO) 9 % (12-44); MEAN CORPUSCULAR HEMOGLOBIN 29 pg (25-34); MEAN CORPUSCULAR HGB CONC 33 g/dL (32-36); MEAN CORPUSCULAR VOLUME 89 fL (80-99); MEAN PLATELET VOLUME 9.2 fL (9.0-12.2); MONOCYTES # (AUTO) 0.5 10^3/uL (0.0-1.0); MONOCYTES % (AUTO) 4 % (0-12); NEUTROPHILS # (AUTO) 9.5 10^3/uL (1.8-7.8); NEUTROPHILS % (AUTO) 85 % (42-75); PLATELET COUNT 192 10^3/uL (130-400); WHITE BLOOD COUNT 11.2 10^3/uL (4.3-11.0)
[2020-06-18 06:03] LABS: CHLORIDE 108 MMOL/L (98-107); POTASSIUM 3.9 MMOL/L (3.6-5.0); SODIUM 141 MMOL/L (135-145)
[2020-06-18 06:05] LABS: CALCIUM 8.5 MG/DL (8.5-10.1); GLUCOSE 133 MG/DL (70-105)
[2020-06-18 06:07] LABS: CARBON DIOXIDE 19 MMOL/L (21-32)
[2020-06-18 06:09] LABS: CREATININE SERUM 0.64 MG/DL (0.60-1.30); GFR ESTIMATED > 60; PHOSPHORUS 4.2 MG/DL (2.3-4.7)
[2020-06-18 06:10] LABS: BUN/CREATININE RATIO 20
[2020-06-18 06:36] LABS: BILIRUBIN,URINE NEGATIVE (NEGATIVE); CLARITY,URINE CLEAR; COLOR,URINE YELLOW; GLUCOSE, URINE (UA) NEGATIVE (NEGATIVE); KETONES,URINE NEGATIVE (NEGATIVE); LEUKOCYTE ESTERASE ,URINE NEGATIVE (NEGATIVE); NITRITE,URINE NEGATIVE (NEGATIVE); PH,URINE 6.5 (5-9); PROTEIN,URINE NEGATIVE (NEGATIVE)
[2020-06-18 06:46] LABS: BACTERIA,URINE NEGATIVE /HPF; WBC,URINE RARE /HPF
[2020-06-18] MEDS: LACTATED RINGERS 1,000 ML IV SCH (06:53)
[2020-06-18] MEDS: AZITHROMYCIN 250 MG TAB (ZITHROMAX) PO SCH (08:10)
[2020-06-18] MEDS: cefTRIAXone 1,000 MG/SWFI 10 ML IV PUSH IV SCH ×2 (08:10)
[2020-06-18] MEDS: FAMOTIDINE 20MG/2ML IV (PEPCID) IV SCH ×2 (08:10→20:41)
--- NOTE | 2020-06-18 10:18 | Pulmonary Progress Note ---
Subjective Time Seen by a Provider: 10:14 Sepsis Event Evaluation Height, Weight, BMI Height: 5'.00" Weight: 180lbs. 0.0oz. 81.098215ea; 26.00 BMI Method:Stated Focused Exam Lactate Level 06/17/20 05:00: Lactic Acid Level 2.38*H 06/17/20 07:18: Lactic Acid Level 1.88 Exam Exam Vital Signs Date Time Temp Pulse Resp B/P (MAP) Pulse Ox O2 Delivery O2 Flow Rate FiO2 06/18/20 07:34 35.5 62 20 120/60 (80) 92 High Flow N/C 10.00 06/18/20 07:08 92 High Flow N/C 5.00 06/18/20 06:42 66 06/18/20 04:45 35.8 54 18 127/65 (85) 97 High Flow N/C 4.00 06/18/20 02:07 90 High Flow N/C 5.00 06/18/20 01:23 53 06/17/20 23:40 36.3 66 20 120/67 (84) 94 High Flow N/C 4.00 06/17/20 22:46 92 High Flow N/C 5.00 06/17/20 20:00 High Flow N/C 4.00 06/17/20 19:27 36.3 71 20 115/64 (81) 91 Nasal Cannula 4.00 06/17/20 19:24 75 06/17/20 18:38 94 High Flow N/C 5.00 06/17/20 16:12 35.5 58 18 113/70 (84) 96 Nasal Cannula 4.00 06/17/20 14:50 95 High Flow N/C 5.00 06/17/20 13:46 38.0 89 93 36 06/17/20 12:00 38.1 76 18 110/70 (83) 90 Nasal Cannula 4.00 06/17/20 11:03 93 High Flow N/C 5.00 I & O 06/18/20 07:00 Intake Total 2190 ml Balance 2190 ml Height & Weight Height: 5'7.00" Weight: 180lbs. 0.0oz. 81.226183xh; 26.00 BMI Method:Stated General Appearance: WD/WN, Anxious, Mild Distress, Other (acutely ill) HEENT: PERRL/EOMI, Normal ENT Inspection, Pharynx Normal Neck: Full Range of Motion, Normal Inspection, Non Tender, Supple, Carotid Bruit Respiratory: Chest Non Tender, Lungs Clear, No Accessory Muscle Use, No Respiratory Distress, Decreased Breath Sounds Cardiovascular: Regular Rate, Rhythm, No Edema, No Gallop, No JVD, No Murmur, Normal Peripheral Pulses Capillary Refill: Less Than 3 Seconds Gastrointestinal: non tender, soft Extremity: Normal Capillary Refill, Normal Inspection, Normal Range of Motion, Non Tender, No Calf Tenderness, No Pedal Edema Neurologic/Psychiatric: Alert, Oriented x3, No Motor/Sensory Deficits, Normal Mood/Affect Skin: Normal Color, Warm/Dry Lymphatic: No Adenopathy Results Lab Laboratory Tests 06/17/20 05:00 06/18/20 05:27 Assessment/Plan Assessment/Plan COVID 19 PNA with worsening hypoxemia -Repeat CXR -Change from NC to Vapotherm -SL IVF and check BNP -Decadron -Oxygen PNA bacterial with sepsis -Repeat PCT -Rocephin and azithromycin -Diehl cultures pending Metabolic acidosis -Monitor JEANNINE MENDEZ DO Jun 18, 2020 10:18
[2020-06-18] MEDS ORDERED: FUROSEMIDE 40 MG/4 ML INJ (LASIX) ONE (11:25)
[2020-06-18] MEDS ORDERED: FUROSEMIDE 40 MG/4 ML INJ (LASIX) IVP ONE (11:30)
--- NOTE | 2020-06-18 11:37 | Diagnostic Imaging Report ---
INDICATION: Shortness of air. COMPARISON: 06/17/2020 FINDINGS: Single frontal radiographic view of the chest was obtained and shows slight interval decrease in inspiratory volumes. There are persistent scattered patchy infiltrates bilaterally. Given the differences in lung volumes, there is no significant change. There is no large effusion or pneumothorax. Cardiac silhouette and pulmonary vasculature are within normal limits. Osseous structures show no acute abnormalities. IMPRESSION: Low lung volumes with persistent diffuse scattered infiltrates. Dictated by: Dictated on workstation # [id number]
[2020-06-18] MEDS: LORazepam INJ 2 MG/ML (ATIVAN) VIAL IVP PRN (15:10)
[2020-06-18] MEDS ORDERED: NS IV 500 ML 500 ML ONE (17:27)
[2020-06-18] MEDS: KETOROLAC 30 MG/ML VIAL IVP PRN (17:31)
[2020-06-18] MEDS: ENOXAPARIN 40 MG/0.4 ML (LOVENOX) SYR SC SCH (20:42)
[2020-06-18] MEDS: ALPRAZolam 0.5 MG (XANAX) TAB PO PRN (20:43)
[2020-06-19] VITALS (7 sets, daily range): BP systolic 107–127; BP diastolic 56–64
[2020-06-19] MEDS: LORazepam INJ 2 MG/ML (ATIVAN) VIAL IVP PRN ×2 (00:35→21:02)
[2020-06-19] MEDS: KETOROLAC 30 MG/ML VIAL IVP PRN ×2 (00:36→21:02)
[2020-06-19] MEDS: RT-ALBUTEROL INHALER HFA (VENTOLIN HFA) 18 GM IH SCH ×6 (01:52→22:29)
[2020-06-19 06:23] LABS: BASOPHILS % (AUTO) 0 % (0-10); EOSINOPHILS % (AUTO) 0 % (0-10); HEMATOCRIT 38 % (35-52); HEMOGLOBIN 12.5 g/dL (11.5-16.0); LYMPHOCYTES # (AUTO) 1.4 10^3/uL (1.0-4.0); LYMPHOCYTES % (AUTO) 12 % (12-44); MEAN CORPUSCULAR HEMOGLOBIN 29 pg (25-34); MEAN CORPUSCULAR HGB CONC 33 g/dL (32-36); MEAN CORPUSCULAR VOLUME 88 fL (80-99); MEAN PLATELET VOLUME 9.2 fL (9.0-12.2); MONOCYTES # (AUTO) 0.5 10^3/uL (0.0-1.0); MONOCYTES % (AUTO) 4 % (0-12); NEUTROPHILS # (AUTO) 10.1 10^3/uL (1.8-7.8); NEUTROPHILS % (AUTO) 83 % (42-75); PLATELET COUNT 217 10^3/uL (130-400); WHITE BLOOD COUNT 12.2 10^3/uL (4.3-11.0)
[2020-06-19 06:33] LABS: CHLORIDE 105 MMOL/L (98-107); POTASSIUM 3.7 MMOL/L (3.6-5.0); SODIUM 140 MMOL/L (135-145)
[2020-06-19 06:34] LABS: CALCIUM 8.7 MG/DL (8.5-10.1)
[2020-06-19 06:35] LABS: GLUCOSE 156 MG/DL (70-105)
[2020-06-19 06:36] LABS: CARBON DIOXIDE 21 MMOL/L (21-32)
[2020-06-19 06:38] LABS: PHOSPHORUS 3.9 MG/DL (2.3-4.7)
[2020-06-19 06:39] LABS: CREATININE SERUM 0.72 MG/DL (0.60-1.30); GFR ESTIMATED > 60
[2020-06-19 06:40] LABS: BUN/CREATININE RATIO 25
[2020-06-19 06:41] LABS: MAGNESIUM 2.1 MG/DL (1.6-2.4)
[2020-06-19] MEDS: FAMOTIDINE 20MG/2ML IV (PEPCID) IV SCH ×2 (09:12→21:02)
[2020-06-19] MEDS: cefTRIAXone 1,000 MG/SWFI 10 ML IV PUSH IV SCH ×2 (09:13)
[2020-06-19] MEDS: AZITHROMYCIN 250 MG TAB (ZITHROMAX) PO SCH (09:13)
[2020-06-19] MEDS ORDERED: polyethylene glycoL POWDER 17 GM (MIRALAX) PACK PO PRN (12:30)
--- NOTE | 2020-06-19 12:57 | Progress Note ---
Subjective Date Seen by a Provider: Jun 19, 2020 Time Seen by a Provider: 11:30 Subjective/Events-last exam Much improve status HLIVF and Lasix helped a lot Feels like she can breathe today Less anxious Slept well last night No pain reported Checked meds and labs Conferred with cashier parking lot of Systems General: Fatigue, Malaise Pulmonary: Dyspnea, Cough Focused Exam Lactate Level 06/17/20 05:00: Lactic Acid Level 2.38*H 06/17/20 07:18: Lactic Acid Level 1.88 Objective Exam Last Set of Vital Signs Vital Signs Date Time Temp Pulse Resp B/P (MAP) Pulse Ox O2 Delivery O2 Flow Rate FiO2 06/19/20 12:45 74 06/19/20 11:17 93 High Flow N/C 4.00 06/19/20 11:08 36.7 20 116/62 (80) 06/19/20 07:06 40 Capillary Refill : Less Than 3 Seconds I&O Intake and Output 06/19/20 00:00 Intake Total 4010 ml Output Total 1100 ml Balance 2910 ml Intake Oral 1740 ml IV Total 2270 ml Output Urine Total 1100 ml # Voids 4 General: Alert, Oriented X3, Cooperative, No Acute Distress Lungs: Clear to Auscultation, Normal Air Movement Heart: Regular Rate, Normal S1, Normal S2, No Murmurs Neuro: Normal Gait, Normal Speech, Strength at 5/5 X4 Ext, Normal Tone Results Lab Laboratory Tests 06/19/20 05:55: White Blood Count 12.2H, Red Blood Count 4.29, Hemoglobin 12.5, Hematocrit 38, Mean Corpuscular Volume 88, Mean Corpuscular Hemoglobin 29, Mean Corpuscular Hemoglobin Concent 33, Red Cell Distribution Width 12.2, Platelet Count 217, Mean Platelet Volume 9.2, Immature Granulocyte % (Auto) 2, Neutrophils (%) (Auto) 83H, Lymphocytes (%) (Auto) 12, Monocytes (%) (Auto) 4, Eosinophils (%) (Auto) 0, Basophils (%) (Auto) 0, Neutrophils # (Auto) 10.1H, Lymphocytes # (Auto) 1.4, Monocytes # (Auto) 0.5, Eosinophils # (Auto) 0.0, Basophils # (Auto) 0.0, Immature Granulocyte # (Auto) 0.2H, Sodium Level 140, Potassium Level 3.7, Chloride Level 105, Carbon Dioxide Level 21, Anion Gap 14, Blood Urea Nitrogen 18, Creatinine 0.72, Estimat Glomerular Filtration Rate > 60, BUN/Creatinine Ratio 25, Glucose Level 156H, Calcium Level 8.7, Phosphorus Level 3.9, Magnesium Level 2.1 Microbiology 06/17/20 Blood Culture - Preliminary, Resulted No growth Assessment/Plan Assessment/Plan Assess & Plan/Chief Complaint Assessment: COVID-19 PNA Sepsis Hypoxia Bacterial PNA superimposed HLP DM Plan: IVF IV abx Dr Herbert consult appreciated High risk for decompensation Lovenox Decadron CVP 06/18/20: HLIVF Lasix one dose Vapotherm IV abx CVP when arrives 06/19/20/: Much improved status Anxiety treatment Prone and side sleeping helps Diagnosis/Problems Diagnosis/Problems (1) Coronavirus infection Status: Acute (2) Hypoxia Status: Acute Clinical Quality Measures DVT/VTE Risk/Contraindication: Risk Factor Score Per Nursin RFS Level Per Nursing on Admit: 4+=Very High TATI WATSON DO Jun 19, 2020 12:57
[2020-06-19] MEDS: SENNA W/DOCUSATE (SENOKOT S) TABLET PO SCH ×2 (13:25→21:02)
--- NOTE | 2020-06-19 14:05 | NUR ---
"RD ASSESSMENT PMHx: hypercholesterolemia; DM; PT INTERACTION: Note pt is currently in COVID isolation per chart review. Note all diet information for nutrition assessment is per Annalisa RN or per chart review. Annalisa states current appetite appears good. Note avg PO intake >75% x1d, per chart review. Annalisa states no issues with nausea, vomiting, constipation, or diarrhea that she is aware of. Note no BM has been recorded, and pt not currently on bowel regimen per chart review. Note unable to determine recent wt hx, per chart review. Note unable to determine current level of DM management, and unable to determine recent HbA1c, per chart review. Est. kcal needs: 3189-8925 kcal | 20-25 kcal/kg Est. Pro needs: 67-82 g Pro | 0.8-1.0 g Pro/kg PES STATEMENT: Given current PO intake, no nutrition diagnosis at this time (NO-1.1). INTERVENTION: Continue with current diet order of Regular diet. Pt may benefit from consistent CHO diet as pt has hx of DM. Did not offer diet education on DM management d/t isolation precautions. Will continue to follow and reassess as pt needs, intake, and status change. Kami COLLINS, MS RD LD [phone] cell"
[2020-06-19] MEDS: ENOXAPARIN 40 MG/0.4 ML (LOVENOX) SYR SC SCH (21:01)
[2020-06-19] MEDS: ALPRAZolam 0.5 MG (XANAX) TAB PO PRN (21:02)
[2020-06-20 03:22] VITALS: BP 112/58
[2020-06-20] MEDS: RT-ALBUTEROL INHALER HFA (VENTOLIN HFA) 18 GM IH SCH ×6 (05:16→22:06)
[2020-06-20 05:57] LABS: BASOPHILS % (AUTO) 0 % (0-10); EOSINOPHILS % (AUTO) 0 % (0-10); HEMATOCRIT 40 % (35-52); HEMOGLOBIN 12.9 g/dL (11.5-16.0); LYMPHOCYTES # (AUTO) 1.5 10^3/uL (1.0-4.0); LYMPHOCYTES % (AUTO) 13 % (12-44); MEAN CORPUSCULAR HEMOGLOBIN 29 pg (25-34); MEAN CORPUSCULAR HGB CONC 33 g/dL (32-36); MEAN CORPUSCULAR VOLUME 88 fL (80-99); MEAN PLATELET VOLUME 9.3 fL (9.0-12.2); MONOCYTES # (AUTO) 0.5 10^3/uL (0.0-1.0); MONOCYTES % (AUTO) 4 % (0-12); NEUTROPHILS # (AUTO) 9.7 10^3/uL (1.8-7.8); NEUTROPHILS % (AUTO) 81 % (42-75); PLATELET COUNT 267 10^3/uL (130-400)
[2020-06-20 06:02] LABS: CHLORIDE 106 MMOL/L (98-107); POTASSIUM 4.3 MMOL/L (3.6-5.0); SODIUM 140 MMOL/L (135-145)
[2020-06-20 06:03] LABS: CALCIUM 8.9 MG/DL (8.5-10.1)
[2020-06-20 06:04] LABS: GLUCOSE 113 MG/DL (70-105)
[2020-06-20 06:05] LABS: CARBON DIOXIDE 22 MMOL/L (21-32)
--- NOTE | 2020-06-20 06:07 | Progress Note - Hospitalist ---
Subjective HPI/CC On Admission Date Seen by Provider: Jun 20, 2020 Time Seen by Provider: 11:00 CC: SOB and lethargy HPI: This [facility] a 62[facility] who has a PMH of HLP and border line DM who presents with Covid-19 11 days after swab, SOB and lethargy. She was found to have elevated lactic acid due to dehydration and CXR showed some abnormalities so CT scan was obtained and that revealed just Covid-19 ground gl ass infiltrates. She was placed on IV antibiotics, convalescent plasma, and IV Decadron and will be monitored closely and I will consult Dr. Herbert due to high risk for decompensation. Subjective/Events-last exam Patient is much improved DC continuous O2 monitor since that makes her nervous if it decreases the least bit DC Tely also Improved status Eating and drinking well Review of Systems General: Fatigue, Malaise Pulmonary: Dyspnea, Cough Focused Exam Lactate Level Objective Exam Vital Signs Vital Signs Date Time Temp Pulse Resp B/P (MAP) Pulse Ox O2 Delivery O2 Flow Rate FiO2 06/21/20 06:52 97 High Flow N/C 4.00 06/21/20 01:00 51 06/20/20 23:56 36.4 20 98/71 (80) 06/19/20 07:06 40 Capillary Refill : Less Than 3 Seconds General Appearance: No Apparent Distress, WD/WN, Anxious Respiratory: Chest Non Tender, Lungs Clear, Normal Breath Sounds, No Accessory Muscle Use, No Respiratory Distress Cardiovascular: Regular Rate, Rhythm, No Edema, No Gallop, No JVD, No Murmur, Normal Peripheral Pulses Neurologic/Psychiatric: Alert, Oriented x3, No Motor/Sensory Deficits, Normal Mood/Affect Results/Procedures Lab Laboratory Tests 06/21/20 06:00 Patient resulted labs reviewed. Assessment/Plan Assessment and Plan Assess & Plan/Chief Complaint Assessment: COVID-19 PNA Sepsis Hypoxia Bacterial PNA superimposed HLP DM Plan: IVF IV abx Dr Herbert consult appreciated High risk for decompensation Lovenox Decadron CVP 06/18/20: HLIVF Lasix one dose Vapotherm IV abx CVP when arrives 06/19/20: Much improved status Anxiety treatment Prone and side sleeping helps 06/20/20: Much improved status Wean O2 Ambulate BM+ Diagnosis/Problems Diagnosis/Problems (1) Coronavirus infection Status: Acute (2) Hypoxia Status: Acute Clinical Quality Measures DVT/VTE Risk/Contraindication: Risk Factor Score Per Nursin RFS Level Per Nursing on Admit: 4+=Very High TATI WATSON DO Jun 20, 2020 06:07
[2020-06-20 06:08] LABS: GFR ESTIMATED > 60; PHOSPHORUS 4.1 MG/DL (2.3-4.7)
[2020-06-20 06:09] LABS: BUN/CREATININE RATIO 23
[2020-06-20 06:10] LABS: MAGNESIUM 2.3 MG/DL (1.6-2.4)
[2020-06-20 07:37] VITALS: BP 109/53
[2020-06-20] MEDS: FAMOTIDINE 20MG/2ML IV (PEPCID) IV SCH (07:54)
[2020-06-20] MEDS: SENNA W/DOCUSATE (SENOKOT S) TABLET PO SCH ×2 (07:55→21:17)
[2020-06-20] MEDS: cefTRIAXone 1,000 MG/SWFI 10 ML IV PUSH IV SCH ×2 (07:55)
[2020-06-20] MEDS: ALPRAZolam 0.5 MG (XANAX) TAB PO PRN (07:55)
[2020-06-20] MEDS: AZITHROMYCIN 250 MG TAB (ZITHROMAX) PO SCH (07:55)
[2020-06-20 16:05] VITALS: BP 116/70
[2020-06-20] MEDS: FAMOTIDINE 20 MG (PEPCID) TABLET PO SCH (21:17)
[2020-06-20] MEDS: ENOXAPARIN 40 MG/0.4 ML (LOVENOX) SYR SC SCH (21:20)
[2020-06-20] MEDS: LORazepam INJ 2 MG/ML (ATIVAN) VIAL IVP PRN (21:28)
[2020-06-20 23:56] VITALS: BP 98/71
[2020-06-21] MEDS: RT-ALBUTEROL INHALER HFA (VENTOLIN HFA) 18 GM IH SCH ×6 (02:32→22:51)
[2020-06-21 06:35] LABS: BASOPHILS % (AUTO) 0 % (0-10); EOSINOPHILS % (AUTO) 0 % (0-10); HEMATOCRIT 41 % (35-52); HEMOGLOBIN 13.7 g/dL (11.5-16.0); LYMPHOCYTES # (AUTO) 1.7 10^3/uL (1.0-4.0); LYMPHOCYTES % (AUTO) 13 % (12-44); MEAN CORPUSCULAR HEMOGLOBIN 29 pg (25-34); MEAN CORPUSCULAR HGB CONC 33 g/dL (32-36); MEAN CORPUSCULAR VOLUME 88 fL (80-99); MEAN PLATELET VOLUME 9.6 fL (9.0-12.2); MONOCYTES # (AUTO) 0.6 10^3/uL (0.0-1.0); MONOCYTES % (AUTO) 5 % (0-12); NEUTROPHILS # (AUTO) 9.9 10^3/uL (1.8-7.8); NEUTROPHILS % (AUTO) 78 % (42-75); PLATELET COUNT 300 10^3/uL (130-400); WHITE BLOOD COUNT 12.8 10^3/uL (4.3-11.0)
[2020-06-21 06:50] LABS: CHLORIDE 104 MMOL/L (98-107); SODIUM 139 MMOL/L (135-145)
[2020-06-21 06:51] LABS: CALCIUM 9.1 MG/DL (8.5-10.1); GLUCOSE 106 MG/DL (70-105)
[2020-06-21 06:53] LABS: CARBON DIOXIDE 22 MMOL/L (21-32)
[2020-06-21 06:55] LABS: CREATININE SERUM 0.75 MG/DL (0.60-1.30); GFR ESTIMATED > 60; PHOSPHORUS 4.3 MG/DL (2.3-4.7)
[2020-06-21 06:56] LABS: BUN/CREATININE RATIO 25
[2020-06-21 06:58] LABS: MAGNESIUM 2.4 MG/DL (1.6-2.4)
[2020-06-21 08:00] VITALS: BP 97/53
[2020-06-21] MEDS: FAMOTIDINE 20 MG (PEPCID) TABLET PO SCH ×2 (08:45→20:46)
[2020-06-21] MEDS: SENNA W/DOCUSATE (SENOKOT S) TABLET PO SCH ×2 (08:45→20:46)
[2020-06-21] MEDS: cefTRIAXone 1,000 MG/SWFI 10 ML IV PUSH IV SCH ×2 (08:46)
[2020-06-21] MEDS: AZITHROMYCIN 250 MG TAB (ZITHROMAX) PO SCH (08:46)
[2020-06-21 15:47] VITALS: BP 96/54
[2020-06-21 20:19] VITALS: BP 104/59
[2020-06-21] MEDS: ALPRAZolam 0.5 MG (XANAX) TAB PO PRN (20:46)
[2020-06-21] MEDS: ENOXAPARIN 40 MG/0.4 ML (LOVENOX) SYR SC SCH (20:49)
[2020-06-22 00:26] VITALS: BP 102/60
[2020-06-22 01:49] VITALS: BP 102/60
[2020-06-22] MEDS ORDERED: RT-ALBUTEROL INHALER HFA (VENTOLIN HFA) 18 GM IH SCH (03:00)
[2020-06-22 06:39] LABS: BASOPHILS % (AUTO) 0 % (0-10); EOSINOPHILS % (AUTO) 0 % (0-10); HEMATOCRIT 42 % (35-52); HEMOGLOBIN 13.8 g/dL (11.5-16.0); LYMPHOCYTES # (AUTO) 1.6 10^3/uL (1.0-4.0); LYMPHOCYTES % (AUTO) 12 % (12-44); MEAN CORPUSCULAR HEMOGLOBIN 29 pg (25-34); MEAN CORPUSCULAR HGB CONC 33 g/dL (32-36); MEAN CORPUSCULAR VOLUME 87 fL (80-99); MEAN PLATELET VOLUME 9.4 fL (9.0-12.2); MONOCYTES # (AUTO) 0.7 10^3/uL (0.0-1.0); MONOCYTES % (AUTO) 5 % (0-12); NEUTROPHILS # (AUTO) 10.7 10^3/uL (1.8-7.8); NEUTROPHILS % (AUTO) 78 % (42-75); PLATELET COUNT 295 10^3/uL (130-400); WHITE BLOOD COUNT 13.6 10^3/uL (4.3-11.0)
[2020-06-22 06:53] LABS: ALBUMIN 3.3 GM/DL (3.2-4.5); CHLORIDE 102 MMOL/L (98-107); SODIUM 137 MMOL/L (135-145)
[2020-06-22 06:54] LABS: CALCIUM 8.7 MG/DL (8.5-10.1)
[2020-06-22 06:55] LABS: GLUCOSE 107 MG/DL (70-105); TOTAL PROTEIN 6.1 GM/DL (6.4-8.2)
[2020-06-22 06:56] LABS: CARBON DIOXIDE 22 MMOL/L (21-32)
[2020-06-22 06:57] LABS: BILIRUBIN,TOTAL 0.4 MG/DL (0.1-1.0)
[2020-06-22 06:59] LABS: ALKALINE PHOSPHATASE 52 U/L (40-136); CREATININE SERUM 0.71 MG/DL (0.60-1.30); GFR ESTIMATED > 60
[2020-06-22 07:00] LABS: BUN/CREATININE RATIO 27
[2020-06-22 07:02] LABS: ALANINE AMINOTRANSFERASE 28 U/L (0-55)
[2020-06-22 08:00] VITALS: BP 100/63
[2020-06-22] MEDS: SENNA W/DOCUSATE (SENOKOT S) TABLET PO SCH (08:27)
[2020-06-22] MEDS: cefTRIAXone 1,000 MG/SWFI 10 ML IV PUSH IV SCH ×2 (08:27)
[2020-06-22] MEDS: FAMOTIDINE 20 MG (PEPCID) TABLET PO SCH (08:27)
[2020-06-22] MEDS ORDERED: CEFD300C3 PO (08:47)
[2020-06-22] MEDS ORDERED: ALPR0.5T7 PO (08:47)
[2020-06-22] MEDS ORDERED: DEXA4TAB66 PO (08:47)
--- NOTE | 2020-06-22 08:48 | Diagnostic Imaging Report ---
EXAMINATION: Portable erect AP chest at 8:15 AM. INDICATION: Hypoxia. FINDINGS: The heart size is within normal limits and stable when compared to 06/18/2020. The alveolar/interstitial pulmonary infiltrates involving both lungs seen previously have diminished. There is still some residual density bilaterally, however. The upper lungs are relatively clear. There is no sign of a pleural effusion. The mediastinum is not widened. The osseous structures are intact. IMPRESSION: The appearance of the chest has improved since the prior exam as both lungs do seem better aerated. A followup study would be recommended for continued evaluation. Dictated by: Dictated on workstation # [id number]
--- NOTE | 2020-06-22 08:48 | Discharge Summary ---
Discharge Summary Hospital Course Problems/Dx: (1) Coronavirus infection Status: Acute (2) Hypoxia Status: Acute Hospital Course Date of Admission: Jun 17, 2020 at 08:24 Admission Diagnosis : Family Physician/Provider: Yari Jansen DO Date of Discharge: 06/22/20 Discharge Diagnosis: [ ] Hospital Course: [ ] Labs and Pending Lab Test: Laboratory Tests 06/22/20 05:12: White Blood Count 13.6H, Red Blood Count 4.78, Hemoglobin 13.8, Hematocrit 42, Mean Corpuscular Volume 87, Mean Corpuscular Hemoglobin 29, Mean Corpuscular Hemoglobin Concent 33, Red Cell Distribution Width 11.9, Platelet Count 295, Mean Platelet Volume 9.4, Immature Granulocyte % (Auto) 4, Neutrophils (%) (Auto) 78H, Lymphocytes (%) (Auto) 12, Monocytes (%) (Auto) 5, Eosinophils (%) (Auto) 0, Basophils (%) (Auto) 0, Neutrophils # (Auto) 10.7H, Lymphocytes # (Auto) 1.6, Monocytes # (Auto) 0.7, Eosinophils # (Auto) 0.0, Basophils # (Auto) 0.0, Immature Granulocyte # (Auto) 0.6H, D-Dimer 0.37, B-Type Natriuretic Peptide 20.7, Procalcitonin 0.02 06/22/20 05:42: Sodium Level 137, Potassium Level 4.0, Chloride Level 102, Carbon Dioxide Level 22, Anion Gap 13, Blood Urea Nitrogen 19H, Creatinine 0.71, Estimat Glomerular Filtration Rate > 60, BUN/Creatinine Ratio 27, Glucose Level 107H, Calcium Level 8.7, Corrected Calcium 9.3, Total Bilirubin 0.4, Aspartate Amino Transf (AST/SGOT) 15, Alanine Aminotransferase (ALT/SGPT) 28, Alkaline Phosphatase 52, Total Protein 6.1L, Albumin 3.3 Microbiology 06/17/20 Blood Culture - Preliminary, Resulted No growth Home Meds Active Cefdinir 300 Mg Capsule 300 Mg PO BID Decadron (Dexamethasone) 4 Mg Tablet 4 Mg PO DAILY Reported Vitamin D3 (Cholecalciferol (Vitamin D3)) 25 Mcg Capsule 25 Mcg PO DAILY Aspirin EC (Aspirin) 81 Mg Tablet.dr 81 Mg PO DAILY Lipitor (Atorvastatin Calcium) 10 Mg Tablet 10 Mg PO DAILY Ventolin Hfa (Albuterol Sulfate) 18 Gm Hfa.aer.ad 2 Puff INH QID PRN Azithromycin 250 Mg Tablet 250 Mg PO DAILY FILLED 06-08-2020 #6/5 DAY SUPPLY Dexamethasone 4 Mg Tablet 6 Mg PO DAILY FILLED 06-08-2020 #15/10 TAKES 1 & OF THE 4MG TABS Fish Oil 1,000 mg Softgel ([place]-3/Dha/Epa/Fish Oil) 1,000 Mg Capsule 1,000 Mg PO DAILY Vitamin C (Ascorbate Calcium) 500 Mg Tablet 500 Mg PO DAILY Discharge Physical Examination Vital Signs Vital Signs Date Time Temp Pulse Resp B/P (MAP) Pulse Ox O2 Delivery O2 Flow Rate FiO2 06/22/20 07:43 91 High Flow N/C 2.00 06/22/20 01:49 36.0 65 28 06/22/20 00:26 20 102/60 (74) Allergies: Coded Allergies: No Known Drug Allergies (Unverified , 03/22/12) Discharge Summary Date of Admission Jun 17, 2020 at 08:24 Date of Discharge Discharge Date: Jun 22, 2020 Admission Diagnosis Assessment: COVID-19 PNA Sepsis Hypoxia Bacterial PNA superimposed HLP DM IVF IV abx Dr Herbert consult appreciated High risk for decompensation Lovenox Decadron CVP Discharge Diagnosis Assessment: COVID-19 PNA Sepsis Hypoxia Bacterial PNA superimposed HLP DM Plan: IVF IV abx Dr Herbert consult appreciated High risk for decompensation Lovenox Decadron CVP 06/18/20: HLIVF Lasix one dose Vapotherm IV abx CVP when arrives 06/19/20: Much improved status Anxiety treatment Prone and side sleeping helps 06/20/20: Much improved status Wean O2 Ambulate BM+ (1) Coronavirus infection Status: Acute (2) Hypoxia Status: Acute Clinical Quality Measures DVT/VTE Risk/Contraindication: Risk Factor Score Per Nursin RFS Level Per Nursing on Admit: 4+=Very High YARI JANSEN DO Jun 22, 2020 08:47
[2020-06-22] MEDS ORDERED: APIX2.5T PO (08:51)
--- NOTE | 2020-06-22 08:51 | Discharge Summary ---
Discharge Summary Hospital Course Was the Problem List Reviewed?: Yes Problems/Dx: (1) Coronavirus infection Status: Acute (2) Hypoxia Status: Acute Hospital Course Date of Admission: Jun 17, 2020 at 08:24 Admission Diagnosis : Family Physician/Provider: Yari Jansen DO Date of Discharge: 06/22/20 Discharge Diagnosis: COVID-19 PNA, Acute hypoxic resp failure, DM, HLP Hospital Course: Hospital course: Pt had a lengthy hospital course for six days after she was admitted for Covid- 19 pneumonia super-imposed with bacterial pneumonia. Overall she required aggressive regimen requiring Vapotherm and BiPAP and Dr. Herbert was consulted. Pt did recover quickly, heplocked IV fluid after sepsis episode from bacterial pneumonia was resolved and she did respond to Lasix for diuresis. Overall she did very well, had no more decompensation, required 2 L of oxygen at home and those orders were placed and Pt will be maintained on Eliquis 2.5 BID due to high risk for thrombosis from Covid-19. I will see her in clinic on Monday. Labs and Pending Lab Test: Laboratory Tests 06/22/20 05:12: White Blood Count 13.6H, Red Blood Count 4.78, Hemoglobin 13.8, Hematocrit 42, Mean Corpuscular Volume 87, Mean Corpuscular Hemoglobin 29, Mean Corpuscular Hemoglobin Concent 33, Red Cell Distribution Width 11.9, Platelet Count 295, Mean Platelet Volume 9.4, Immature Granulocyte % (Auto) 4, Neutrophils (%) (Auto) 78H, Lymphocytes (%) (Auto) 12, Monocytes (%) (Auto) 5, Eosinophils (%) (Auto) 0, Basophils (%) (Auto) 0, Neutrophils # (Auto) 10.7H, Lymphocytes # (Auto) 1.6, Monocytes # (Auto) 0.7, Eosinophils # (Auto) 0.0, Basophils # (Auto) 0.0, Immature Granulocyte # (Auto) 0.6H, D-Dimer 0.37, B-Type Natriuretic Peptide 20.7, Procalcitonin 0.02 06/22/20 05:42: Sodium Level 137, Potassium Level 4.0, Chloride Level 102, Carbon Dioxide Level 22, Anion Gap 13, Blood Urea Nitrogen 19H, Creatinine 0.71, Estimat Glomerular Filtration Rate > 60, BUN/Creatinine Ratio 27, Glucose Level 107H, Calcium Level 8.7, Corrected Calcium 9.3, Total Bilirubin 0.4, Aspartate Amino Transf (AST/SGOT) 15, Alanine Aminotransferase (ALT/SGPT) 28, Alkaline Phosphatase 52, Total Protein 6.1L, Albumin 3.3 Microbiology 06/17/20 Blood Culture - Preliminary, Resulted No growth Home Meds Active Eliquis (Apixaban) 2.5 Mg Tablet 2.5 Mg PO BID take to prevent blood clots from COVID Cefdinir 300 Mg Capsule 300 Mg PO BID Decadron (Dexamethasone) 4 Mg Tablet 4 Mg PO DAILY Alprazolam 0.5 Mg Tablet 0.5 Mg PO Q4HR PRN Reported Vitamin D3 (Cholecalciferol (Vitamin D3)) 25 Mcg Capsule 25 Mcg PO DAILY Aspirin EC (Aspirin) 81 Mg Tablet.dr 81 Mg PO DAILY Lipitor (Atorvastatin Calcium) 10 Mg Tablet 10 Mg PO DAILY Ventolin Hfa (Albuterol Sulfate) 18 Gm Hfa.aer.ad 2 Puff INH QID PRN Azithromycin 250 Mg Tablet 250 Mg PO DAILY FILLED 06-08-2020 #6/5 DAY SUPPLY Dexamethasone 4 Mg Tablet 6 Mg PO DAILY FILLED 06-08-2020 #15/10 TAKES 1 & OF THE 4MG TABS Fish Oil 1,000 mg Softgel ([place]-3/Dha/Epa/Fish Oil) 1,000 Mg Capsule 1,000 Mg PO DAILY Vitamin C (Ascorbate Calcium) 500 Mg Tablet 500 Mg PO DAILY Assessment/Pt Instructions Dr Jansen this week Discharge Planning: <30 minutes discharge planning Discharge Instructions Discharge Diet: No Restrictions Activity as Tolerated: Yes Discharge Physical Examination Vital Signs Vital Signs Date Time Temp Pulse Resp B/P (MAP) Pulse Ox O2 Delivery O2 Flow Rate FiO2 06/22/20 07:43 91 High Flow N/C 2.00 06/22/20 01:49 36.0 65 28 06/22/20 00:26 20 102/60 (74) General Appearance: No Apparent Distress, WD/WN, Chronically ill Respiratory: Chest Non Tender, Lungs Clear, Normal Breath Sounds, No Accessory Muscle Use, No Respiratory Distress Cardiovascular: Regular Rate, Rhythm, No Edema, No Gallop, No JVD, No Murmur, Normal Peripheral Pulses Neurologic/Psychiatric: Alert, Oriented x3, No Motor/Sensory Deficits, Normal Mood/Affect Allergies: Coded Allergies: No Known Drug Allergies (Unverified , 03/22/12) Discharge Summary Date of Admission Jun 17, 2020 at 08:24 Date of Discharge Discharge Date: Jun 22, 2020 Admission Diagnosis Assessment: COVID-19 PNA Sepsis Hypoxia Bacterial PNA superimposed HLP DM IVF IV abx Dr Herbert consult appreciated High risk for decompensation Lovenox Decadron CVP Discharge Diagnosis Assessment: COVID-19 PNA Sepsis Hypoxia Bacterial PNA superimposed HLP DM Plan: IVF IV abx Dr Herbert consult appreciated High risk for decompensation Lovenox Decadron CVP 06/18/20: HLIVF Lasix one dose Vapotherm IV abx CVP when arrives 06/19/20: Much improved status Anxiety treatment Prone and side sleeping helps 06/20/20: Much improved status Wean O2 Ambulate BM+ (1) Coronavirus infection Status: Acute (2) Hypoxia Status: Acute Clinical Quality Measures DVT/VTE Risk/Contraindication: Risk Factor Score Per Nursin RFS Level Per Nursing on Admit: 4+=Very High YARI JANSEN DO Jun 22, 2020 08:51
--- NOTE | 2020-06-22 11:18 | NUR ---
Received physician orders for Home Oxygen and faxed orders to [facility]. there is a shortage of oxygen concentrators in the area due to COVID pandemic and pt was agreeable to referral to [facility] as they had the available oxygen to meet her needs. Awaiting the delivery of home oxygen.
--- NOTE | 2020-06-22 11:45 | NUR ---
Patient walked 360 feet on room air. Patient didn't require oxygen at this time Addendum: 06/22/20 at 1146 by KENNY DAVE RT Amended: Links added.
[2020-06-22 15:19] VITALS: BP 100/63
--- NOTE | 2020-06-22 15:21 | NUR ---
NICHOLAS PEREZ demonstrates understanding of discharge instructions and accurately returns instructions upon questioning. Copy of Post-Discharge Instructions and Medication Discharge Instructions given to patient. NICHOLAS PEREZ is able to manage continuing needs after discharge. Patients belongings returned to patient. Skin dry and intact; no breakdown noted. Patient discharged from [facility] on 06/22/20 at 1522. NICHOLAS PEREZ left floor via wheelchair, accompanied by staff.
== END 2020-06-22 15:23 | disposition home or self-care (01) | DRG 871 ==
LOC: EDUNIT# 04:37 → ER 04:41 → 4TH 08:24
PROVIDERS: ADMIT Internal Medicine; ATTEND Internal Medicine
PROC: XW13325 Transfusion of Convalescent Plasma (Nonautologous) into Peripheral Vein, Percutaneous Approach, New Technology Group 5 (ICD-10-PCS; principal; 2020-06-18)
DX: A41.89 Other specified sepsis (principal); U07.1 COVID-19; J12.82 Pneumonia due to coronavirus disease 2019; J15.9 Unspecified bacterial pneumonia; E87.2 Acidosis; R09.02 Hypoxemia; F41.9 Anxiety disorder, unspecified; E78.00 Pure hypercholesterolemia, unspecified; E78.5 Hyperlipidemia, unspecified; E11.9 Type 2 diabetes mellitus without complications; E86.0 Dehydration; Z87.891 Personal history of nicotine dependence; Z73.0 Burn-out; Z79.2 Long term (current) use of antibiotics; Z79.82 Long term (current) use of aspirin
CPT/HCPCS: 36415; 71045; 71260; 80048; 80053; 81000; 82728; 82805; 83605; 83735; 83880; 84100; 84145; 85025; 85379; 86141; 86900; 86901; 87040; 94640; 94664; 94760; 94761

== ENCOUNTER → 2020-10-12 | Outpatient (CLI) | payer BC ==
[~2020-10-12] VITALS: Ht 170 cm; Wt 86.0 kg
[~2020-10-12] MED LIST changes: +ALBU18HF2 INH; +ALPR0.5T7 PO; +APIX2.5T PO; +ASPI-1238 PO; +ATOR10TA PO; +AZIT250T12 PO; +CALC600T91 PO; +CEFD300C3 PO; +CHOL10007 PO; -CLC600T PO; +DEXA4TAB PO; +DEXA4TAB66 PO
[2020-10-12] MEDS: CATHETER FLUSH 10 ML SYR IV PRN (07:10)
[2020-10-12 08:03] VITALS: BP 132/80
--- NOTE | 2020-10-12 10:51 | Cardiology Stress Test Report ---
Stress Test Report Date of Procedure/Referring: Date of Procedure: October 12, 2020 PCP Yari Jansen DO Admitting Physician Yari Jansen DO Indications: CP Baseline Vital Signs Vital Signs Date Time Temp Pulse Resp B/P (MAP) Pulse Ox O2 Delivery O2 Flow Rate FiO2 10/12/20 08:03 60 132/80 (97) 98 Summary: Patient receive a resting and stress dose of Myoview, images were acquired and reviewed in the short axis view, horizontal long axis view and vertical long axis view. TID: 0.99 SSS: 1 SDS: 1 EF: 74 1. No significant ischemia or infarction on SPECT images 2. Normal left ventricular size, EF 74% JESSI VARGAS MD October 12, 2020 10:51
== END ==
LOC: CARD 07:00
PROVIDERS: ATTEND Internal Medicine
DX: R07.9 Chest pain, unspecified (principal)
CPT/HCPCS: 78452; 93017; A9502

== ENCOUNTER → 2020-10-12 | Outpatient (CLI) | payer BC | LOC: CARD 14:45 | PROVIDERS: ATTEND Internal Medicine | DX: R07.9 Chest pain, unspecified (principal) | CPT/HCPCS: 93306 ==

== ENCOUNTER 2020-11-24 14:17 | Outpatient (CLI) | payer BC | END 2020-11-24 14:45 | LOC: SLEEP 14:17 | PROVIDERS: ATTEND Otolaryngology Otolaryngology/Facial Plastic Surgery | DX: G47.33 Obstructive sleep apnea (adult) (pediatric) (principal) | CPT/HCPCS: G0399 ==

== ENCOUNTER → 2021-02-08 | Outpatient (CLI) | payer BC | LOC: LABNPT 08:31 | PROVIDERS: ATTEND Otolaryngology Otolaryngology/Facial Plastic Surgery | DX: G47.33 Obstructive sleep apnea (adult) (pediatric) (principal); Z20.822 Contact with and (suspected) exposure to COVID-19 | CPT/HCPCS: 87635 ==

== ENCOUNTER 2021-02-10 20:35 | Outpatient (CLI) | payer BC | END 2021-02-11 07:13 | disposition home or self-care (01) | LOC: SLEEP 20:35 | PROVIDERS: ATTEND Otolaryngology Otolaryngology/Facial Plastic Surgery | DX: G47.33 Obstructive sleep apnea (adult) (pediatric) (principal); I27.21 Secondary pulmonary arterial hypertension; G47.31 Primary central sleep apnea; Z20.822 Contact with and (suspected) exposure to COVID-19 | CPT/HCPCS: 95811 ==

== ENCOUNTER → 2021-03-23 | Outpatient (CLI) | payer BC ==
--- NOTE | 2021-03-23 18:36 | Diagnostic Imaging Report ---
INDICATION: Routine screening. COMPARISON is made with prior mammograms from 03/06/2020 and 07/12/2018. 2-D and 3-D bilateral screening mammography was performed with CAD. Scattered fibroglandular densities are identified bilaterally. The parenchymal pattern is stable. No mass or malignant appearing microcalcifications are seen. Axillae are unremarkable. IMPRESSION: BI-RADS Category 1. No mammographic features suspicious for malignancy are identified. ACR BI-RADS Category 1: Negative. Result letter will be mailed to the patient. Note: At least 10% of breast cancer is not imaged by mammography. Dictated by: Dictated on workstation # [id number]
== END ==
LOC: RAD 08:45
PROVIDERS: ATTEND Internal Medicine
DX: Z12.31 Encounter for screening mammogram for malignant neoplasm of breast (principal)
CPT/HCPCS: 77063; 77067

== ENCOUNTER → 2022-03-29 | Outpatient (CLI) | payer BC ==
--- NOTE | 2022-03-29 13:06 | Diagnostic Imaging Report ---
INDICATION: Postmenopausal state. COMPARISON: None available. FINDINGS: AP Spine L2-L4: [BMD (g/cm2): 1.228] [T-Score: 0.2] [Z-Score: 1.0] [BMD Previous: NA] [BMD % Change: NA] LT Hip Neck: [BMD (g/cm2): 0.937] [T-Score: -0.7] [Z-Score: 0.2] LT Hip Total: [BMD (g/cm2):1.024] [T-Score:0.1] [Z-Score: 0.7] [BMD Previous: NA] [BMD % Change: NA] RT Hip Neck: [BMD (g/cm2):0.995] [T-Score:-0.3] [Z-Score:0.6] RT Hip Total: [BMD (g/cm2):1.076] [T-score:0.5] [Z-Score:1.1] [BMD Previous:NA] [BMD % Change:NA] *Indicates significant change from prior examination based on 95% confidence level. World Health Organization criteria for BMD interpretation classify patients as Normal (T-score at or above -1.0), Osteopenic (T-score between -1.0 and -2.5) or Osteoporotic (T-score at or below -2.5). LIMITATIONS AND MODIFICATION: None. FRACTURE RISK (FRAX SCORE): The ten year probability of (%): Major Osteoporotic Fracture: [NA] Hip Fracture: [NA] IMPRESSION: 1. Normal bone mineral density. 2. Baseline examination. 3. See below National Osteoporosis Foundation guidelines on when to potentially initiate pharmacologic therapy. Based on the National Osteoporosis Foundation Guidelines, pharmacologic treatment should be initiated in any of the following, unless clinical conditions suggest otherwise: * Any patient with prior fragility fracture of the hip or vertebrae. A spine fracture indicates 5X risk for subsequent spine fracture and 2X risk for subsequent hip fracture. * Osteoporosis (T-score <-2.5). * Postmenopausal women and men age 50 and older with low bone mass/osteopenia (T-score between -1.0 and -2.5) by DXA and 10-year major osteoporotic fracture greater than 20% or a 10-year probability of hip fracture greater than 3%. These fracture risks are supplied above in the FRAX score, if applicable. * Clinician judgement and/or patient preferences may indicate treatment for people with 10-year fracture probabilities above or below these levels. Dictated by: Dictated on workstation # [id number]
--- NOTE | 2022-03-29 14:53 | Diagnostic Imaging Report ---
Indication: Routine screening. Comparison is made with prior mammogram 03/23/2021 and 03/06/2020. 2-D and 3-D bilateral screening mammography was performed with CAD. CAD is utilized. The current study was also evaluated with a Computer Aided Detection (CAD) system. Scattered fibroglandular densities are identified bilaterally. The parenchymal pattern is stable. No mass or malignant-appearing microcalcifications are seen. Axillae are unremarkable. IMPRESSION: BI-RADS Category 1 No mammographic features suspicious for malignancy are identified. ACR BI-RADS Category 1: Negative. Result letter will be mailed to the patient. Note: At least 10% of breast cancer is not imaged by mammography. Dictated by: Dictated on workstation # [id number]
== END ==
LOC: RAD 09:39
PROVIDERS: ATTEND Internal Medicine
DX: Z12.31 Encounter for screening mammogram for malignant neoplasm of breast (principal); M85.88 Other specified disorders of bone density and structure, other site; Z78.0 Asymptomatic menopausal state
CPT/HCPCS: 77063; 77067; 77080

== ENCOUNTER 2022-04-13 05:41 | Outpatient (CLI) | payer BC ==
[~2022-04-13] VITALS: Ht 170.2 cm; Wt 87.0 kg
[2022-04-20] MEDS ORDERED: CALC600T91 PO (09:18)
[2022-04-20] MEDS ORDERED: ZOLP5TAB7 PO (09:18)
[2022-04-20] MEDS ORDERED: MULT-1136 PO (09:18)
== END 2022-04-20 09:32 | disposition home or self-care (01) ==
LOC: PREOP 05:41
PROVIDERS: ATTEND Surgery
DX: Z01.818 Encounter for other preprocedural examination (principal)

== ENCOUNTER 2022-04-26 11:57 | Day surgery (SDC) | payer BC ==
[~2022-04-26] VITALS: Ht 170 cm; Wt 87.0 kg
[~2022-04-26 11:57] MED LIST changes: +LACTATED RINGERS 1,000 ML IV STA; +MULT-1136 PO; +ZOLP5TAB7 PO
[2022-04-26 12:10] VITALS: BP 108/81
[2022-04-26] MEDS ORDERED: PROPOFOL INJECTION 50 ML IV ONE (12:33)
--- NOTE | 2022-04-26 12:48 | Progress Note-Pre Operative ---
Pre-Operative Progress Note Date of Available H&P: Mar 28, 2022 Date H&P Reviewed: Apr 26, 2022 Time H&P Reviewed: 12:47 History & Physical: H&P Reviewed, Patient Examed, No changes noted Pre-Operative Diagnosis: family willis colon cancer, screening colonoscopy TWYLA PINEDO DO Apr 26, 2022 12:48
--- NOTE | 2022-04-26 13:47 | Discharge Inst-Simple/Standard ---
Discharge Inst-Standard Reconcile Patient Problems Problems Reviewed?: Yes Patient Instructions/Follow Up Plan of Care/Instructions/FU: Schedule appointment with Dr. Rich in 5 years. Activity as Tolerated: Yes Discharge Diet: No Restrictions, Regular Diet TWYLA RICH DO Apr 26, 2022 13:47
--- NOTE | 2022-04-26 13:51 | Anesthesia-General Post-Op ---
MAC Patient Condition Mental Status/LOC: Same as Preop Cardiovascular: Satisfactory Nausea/Vomiting: Absent Respiratory: Satisfactory Pain: Controlled Complications: Absent Post Op Complications Complications None Follow Up Care/Instructions Patient Instructions None needed. Anesthesiology Discharge Order Discharge Order Patient is doing well, no complaints, stable vital signs, no apparent adverse anesthesia problems. No complications reported per nursing. JOSE G BUNN CRNA Apr 26, 2022 13:51
[2022-04-26 13:55] VITALS: BP 112/71
[2022-04-26 14:00] VITALS: BP 110/70
[2022-04-26 14:20] VITALS: BP 109/74
[2022-04-26 14:25] VITALS: BP 109/74
--- NOTE | 2022-04-27 01:19 | OPERATIVE REPORT ---
DATE OF SERVICE: 04/26/2022 PREOPERATIVE DIAGNOSIS: Family history of colon cancer, screening colonoscopy. POSTOPERATIVE DIAGNOSIS: Normal colon. PROCEDURE: Colonoscopy. SURGEON: Twyla Rich DO ANESTHESIA: Per ORDER TAKERS SUPERVISOR. ESTIMATED BLOOD LOSS: None. COMPLICATIONS: None. INDICATIONS: The patient is a 61-year-old female, needing screening colonoscopy. She understands risks and benefits of the procedure and wishes to proceed. Consent was signed in chart. DESCRIPTION OF PROCEDURE: The patient was taken to endoscopy suite, placed in the left lateral recumbent position. Timeout was performed. Digital rectal exam was performed. No palpable polyps, masses or ulcerations. Scope was inserted in the rectum, all the way to the cecum with minimal difficulty. Prep was adequate. Scope was slowly retracted back. No polyps, masses or ulcerations in the cecum, ascending, transverse, descending and sigmoid colon. Once in the rectum, the scope was retroflexed, noting no other pathology. Scope was returned to its normal position slowly withdrawn until completely removed, noting no other pathology. The patient tolerated the procedure well without any complications. She was taken to recovery room in stable condition. RECOMMENDATIONS: The patient will need repeat colonoscopy in 5 years. Any issues before that, be seen at that time and will be reevaluated. Job ID: [id number] DocumentID: [id number] Dictated Date: 04/26/2022 15:09:55 High School Music Instructor Date: 04/27/2022 01:18:00 Dictated By: TWYLA RICH DO
== END 2022-04-26 14:25 | disposition home or self-care (01) ==
LOC: ENDO 11:57
PROVIDERS: ATTEND Surgery
DX: Z12.11 Encounter for screening for malignant neoplasm of colon (principal); Z80.0 Family history of malignant neoplasm of digestive organs; G47.33 Obstructive sleep apnea (adult) (pediatric); E66.9 Obesity, unspecified; Z68.30 Body mass index [BMI] 30.0-30.9, adult

== ENCOUNTER → 2023-01-06 | Outpatient (CLI) | payer BC ==
[~2023-01-06] MED LIST changes: -LACTATED RINGERS 1,000 ML IV STA
--- NOTE | 2023-01-06 11:37 | Diagnostic Imaging Report ---
PROCEDURE: US Non-ob pelvis comp/trans. TECHNIQUE: Multiple realtime grayscale images were obtained of the pelvis in various projections endovaginally. Transabdominal imaging was also performed. INDICATION: Postmenopausal bleeding Uterus measures 6.0 x 3.5 x 4.9 cm. It is anteverted. There is a 2.3 x 2.0 x 2.1 cm heterogeneous area in the lower uterine segment anteriorly that may be a fibroid. It does not have appreciably increased vascularity. There is some fluid in the endometrial cavity. There is also hyperechoic nodular structure within the endometrial cavity that is likely an endometrial polyp. It measures 8 mm in diameter. Right ovary is obscured by bowel gas. Left ovary appears normal. There is no free fluid. IMPRESSION: Probable anterior intramural uterine fibroid in the lower uterine segment. Probable endometrial polyp. Dictated by: Dictated on workstation # [id number]
== END ==
LOC: RAD 09:28
PROVIDERS: ATTEND Nurse Practitioner Women's Health
DX: N95.0 Postmenopausal bleeding (principal)
CPT/HCPCS: 76830; 76856

== ENCOUNTER 2023-01-19 05:31 | Outpatient (CLI) | payer BC ==
[~2023-01-19] VITALS: Ht 170.2 cm; Wt 88.4 kg
== END 2023-01-19 10:08 | disposition home or self-care (01) ==
LOC: PREOP 05:31
PROVIDERS: ATTEND Obstetrics & Gynecology
DX: Z01.818 Encounter for other preprocedural examination (principal)

== ENCOUNTER 2023-01-24 07:30 | Day surgery (SDC) | payer BC ==
[2023-01-24] VITALS (10 sets, daily range): BP systolic 91–124; BP diastolic 60–80
[~2023-01-24] VITALS: Ht 170.2 cm; Wt 88.4 kg
--- NOTE | 2023-01-24 07:57 | Progress Note-Pre Operative ---
Pre-Operative Progress Note Date of Available H&P: Jan 24, 2023 Date H&P Reviewed: Jan 24, 2023 Time H&P Reviewed: 07:45 History & Physical: H&P Reviewed, Patient Examed, No changes noted Pre-Operative Diagnosis: PMB, Thickened endometrium on US PAM YING DO Jan 24, 2023 07:57
--- NOTE | 2023-01-24 07:58 | Discharge Inst-Women's Service ---
Discharge Inst-Women's Serv Depart Medication/Instructions New, Converted or Re-Newed RX: Other (OTC med PRN) Problems Reviewed?: Yes Consults/Follow Up Additional Follow Up: Yes Orders/Referrals Dr. Ying in 7-10 days Activity Activity: Activity as Tolerated Driving Instructions: No Driving for 1 Week NO SMOKING: NO SMOKING Nothing Inside Vagina: No Douching, No Convoy, No Tampons Diet Discharge Diet: No Restrictions Symptoms to Report to : Bleeding Excessive, Pain Increased, Fever Over 101 Degrees F, Vaginal Bleeding Increase, Questions/Concerns For Any Problems or Questions: Contact Your Physician PAM YING DO Jan 24, 2023 07:58
[2023-01-24] MEDS ORDERED: KETOROLAC INJ 30 MG/ML VIAL IVP ONE (08:00)
[2023-01-24] MEDS ORDERED: D5 LR 1,000 ML IV SOLN 1,000 ML IV SCH (08:00)
[2023-01-24] MEDS ORDERED: ONDANSETRON 4 MG/2 ML (SDV) Z0FRAN IVP PRN ×2 (08:00→09:15)
[2023-01-24] MEDS ORDERED: HYDROcodone/ACETAMINOPHEN 5 MG/325 MG TABLET PO PRN (08:00)
[2023-01-24 08:12] LABS: BASOPHILS # (AUTO) 0.1 10^3/uL (0.0-0.1); BASOPHILS % (AUTO) 1 % (0-10); EOSINOPHILS # (AUTO) 0.1 10^3/uL (0.0-0.3); EOSINOPHILS % (AUTO) 2 % (0-10); HEMATOCRIT 41 % (35-52); HEMOGLOBIN 13.3 g/dL (11.5-16.0); LYMPHOCYTES # (AUTO) 2.2 10^3/uL (1.0-4.0); LYMPHOCYTES % (AUTO) 44 % (12-44); MEAN CORPUSCULAR HEMOGLOBIN 30 pg (25-34); MEAN CORPUSCULAR HGB CONC 33 g/dL (32-36); MEAN CORPUSCULAR VOLUME 90 fL (80-99); MEAN PLATELET VOLUME 9.5 fL (9.0-12.2); MONOCYTES # (AUTO) 0.4 10^3/uL (0.0-1.0); MONOCYTES % (AUTO) 8 % (0-12); NEUTROPHILS # (AUTO) 2.2 10^3/uL (1.8-7.8); NEUTROPHILS % (AUTO) 45 % (42-75); PLATELET COUNT 247 10^3/uL (130-400); WHITE BLOOD COUNT 4.9 10^3/uL (4.3-11.0)
[2023-01-24] MEDS ORDERED: LACTATED RINGERS 1,000 ML IV PRN (08:15)
[2023-01-24] MEDS ORDERED: fentaNYL INJECTION 100 MCG/2 ML VIAL ONE (08:19)
[2023-01-24] MEDS ORDERED: BUPIVACAINE 0.25% 30 ML VIAL ONE (08:27)
[2023-01-24] MEDS ORDERED: proPOfol 200 MG/20 ML (DIPRIVAN) VIAL IV ONE (09:08)
[2023-01-24] MEDS ORDERED: ONDANSETRON 4 MG/2 ML (SDV) Z0FRAN ONE (09:08)
[2023-01-24] MEDS ORDERED: LIDOCAINE PF 2% 5 ML VIAL ONE (09:08)
[2023-01-24] MEDS ORDERED: dexAMETHasone INJ 10 MG/ML 1 ML VIAL ONE (09:08)
[2023-01-24] MEDS ORDERED: BUPIVACAINE 0.25% 30 ML VIAL INJ ONE (09:09)
[2023-01-24] MEDS ORDERED: SEVOFLURANE (ULTANE) 15 ML INHAL SOLN ONE (09:09)
[2023-01-24] MEDS ORDERED: morphine INJ 10 MG/ML 1ML (SYR OR VIAL) IVP ONE (09:15)
[2023-01-24] MEDS ORDERED: fentaNYL INJECTION 100 MCG/2 ML VIAL IVP ONE (09:15)
--- NOTE | 2023-01-24 09:15 | Anesthesia-General Post-Op ---
General Patient Condition Mental Status/LOC: Same as Preop Cardiovascular: Satisfactory Nausea/Vomiting: Absent Respiratory: Satisfactory Pain: Controlled Complications: Absent Post Op Complications Complications None Follow Up Care/Instructions Patient Instructions None needed. Anesthesia/Patient Condition Patient Condition Patient is doing well, no complaints, stable vital signs, no apparent adverse anesthesia problems. No complications reported per nursing. KIMBERLI BARAJAS CRNA Jan 24, 2023 09:15
--- NOTE | 2023-01-24 13:52 | OPERATIVE REPORT ---
DATE OF SERVICE: 01/24/2023 PREOPERATIVE DIAGNOSES: 1. A 62-year-old female with postmenopausal bleeding. 2. Thickened endometrium on ultrasound. POSTOPERATIVE DIAGNOSES: 1. A 62-year-old female with postmenopausal bleeding. 2. Thickened endometrium on ultrasound. PROCEDURE: D and C. SURGEON: Pam Ying DO ANESTHESIA: LMA. ESTIMATED BLOOD LOSS: Minimal. URINE OUTPUT: 300 mL drained at start of the procedure. FLUIDS: 800 mL solution. FINDINGS: Grossly normal-appearing external female genitalia. Grossly normal-appearing cervix and moderate amount of products of conception consistent with possible endometrial polyp on gross inspection. SPECIMEN SENT: Endometrial curettings. INDICATIONS FOR PROCEDURE: This 62-year-old female patient who had sought care in my office. She was referred from Dr. Jansen due to postmenopausal bleeding episode. She also had a thickened endometrium on ultrasound. We discussed endometrial sampling that was warranted due to her age and postmenopausal bleeding episode. Risks of the procedure were discussed with the patient in detail. EMB versus D and C were discussed and we discussed how D and C would potentially removed a larger structure such as a polyp, so we opted to proceed with that. After all of her questions were answered, consent was obtained in the preoperative area, and the patient was taken to the operating room. OPERATIVE DESCRIPTION IN DETAIL: Once in the operating room, anesthesia was administered and found to be adequate, was placed in dorsal lithotomy position, prepped and draped in normal sterile fashion. A timeout was performed. The bladder was drained using straight catheterization. A weighted speculum was inserted into the patient's vagina. Right angle retractor was utilized. Cervix was grasped at 12 o'clock position using a long Allis clamp. I then performed a paracervical block at 3 and 9 o'clock positions on the cervix. Care was taken to aspirate for injecting 5 mL of 0.25% Marcaine injected at each site. I then gently sound the uterine cavity, depth was found to be 8 cm. I then gently dilate the cervix using Hanks dilators to maximum dilatation of 1 cm, at which point I performed a gentle curettage of the endometrium using a small to medium size endometrial curette after which there is no active bleeding noted. Moderate amount of tissue was collected. A large polypoid structure was collected as well consistent with possible endometrial polyp. All instruments were removed from the patient's vagina. At that point, the patient tolerated the procedure well and sent to recovery area in stable condition. Lap and sponge counts were correct at the end of the procedure. Instrument counts correct as well. Job ID: [id number] DocumentID: [id number] Dictated Date: 01/24/2023 09:18:08 Senior Applications Architect Date: 01/24/2023 13:50:00 Dictated By: PAM YING DO
== END 2023-01-24 11:05 | disposition home or self-care (01) ==
LOC: SDC 07:30
PROVIDERS: ATTEND Obstetrics & Gynecology
DX: C54.1 Malignant neoplasm of endometrium (principal); N84.0 Polyp of corpus uteri; N95.0 Postmenopausal bleeding; E66.9 Obesity, unspecified; G47.33 Obstructive sleep apnea (adult) (pediatric); Z68.30 Body mass index [BMI] 30.0-30.9, adult; Z99.81 Dependence on supplemental oxygen
CPT/HCPCS: 36415; 85025; 86850; 86900; 86901; 87081

== ENCOUNTER → 2023-04-20 | Outpatient (CLI) | payer BC ==
--- NOTE | 2023-04-20 17:46 | Diagnostic Imaging Report ---
3-D bilateral screening mammogram. 2-D and 3-D bilateral screening mammography was performed with CAD. COMPARISON: This study was compared to the prior exams of 03/29/2022, 03/23/2021 and 03/06/2020. There are no current complaints. The breasts are predominantly fatty. In the inferior aspect of the left breast at middle to posterior depth there is a 5 mm rounded asymmetry. There is a corresponding finding on the medial aspect of the left breast on the craniocaudad view. This finding has a generally benign appearance but I would recommend that a compression views of this area be performed in the CC and MLO projections as well as a true lateral view of the left breast. Ultrasound of this area should be performed as well.. The overall appearance of the breasts has not changed significantly otherwise. There is no primary or secondary sign of malignancy noted. IMPRESSION: Additional mammographic views and ultrasound would be recommended for further evaluation of the benign-appearing asymmetry in the medial aspect of the left breast. ACR BI-RADS Category 0: Incomplete. (Needs additional imaging evaluation). Result letter will be mailed to the patient. Note: At least 10% of breast cancer is not imaged by mammography. Dictated by: Dictated on workstation # [id number]
== END ==
LOC: RAD 10:22
PROVIDERS: ATTEND Internal Medicine
DX: Z12.31 Encounter for screening mammogram for malignant neoplasm of breast (principal); N64.89 Other specified disorders of breast
CPT/HCPCS: 77063; 77067

== ENCOUNTER → 2023-05-10 | Outpatient (CLI) | payer BC ==
--- NOTE | 2023-05-10 13:36 | Diagnostic Imaging Report ---
Indication: Left breast density. Patient presents for additional views. Correlation is made with screening study from 04/20/2023. Unilateral left 2-D and 3-D diagnostic mammography was performed. This includes spot compression CC and ML views as well as conventional 90 degree lateral views. Minimal residual nodularity in the inner left breast on the CC view/spot compression view is noted. No definite density on the spot compression ML or conventional 90 lateral view is seen. Even so, further evaluation of this area with ultrasound is recommended. No other abnormalities are detected. IMPRESSION: BI-RADS 0 Minimal residual density in the medial left breast 6 cm from the nipple. Further evaluation with ultrasound is recommended and will be performed today. ACR BI-RADS Category 0: Incomplete. (Needs additional imaging evaluation). Result letter will be mailed to the patient. Note: At least 10% of breast cancer is not imaged by mammography. Dictated by: Dictated on workstation # [id number]
--- NOTE | 2023-05-10 14:55 | Diagnostic Imaging Report ---
INDICATION: Left breast density. This study is performed for further evaluation. COMPARISON: Correlation is made with the diagnostic mammogram from earlier this same day as well as the screening mammogram from 04/20/2023. FINDINGS: Sonographic interrogation of the inner left breast was performed. There is a tiny cyst at the 7:30 location of the left breast 5-6 cm from the nipple measuring approximately 4 mm x 2 mm. There is a second cyst located at the 9 o'clock location 4 to 5 cm from the nipple measuring 4 mm. These likely account for the mammographic density. No solid lesions are seen. IMPRESSION: Benign appearing cysts in the inner left breast, likely accounting for the mammographic density. The patient may return to routine annual screening mammography. ACR BI-RADS Category 2: Benign findings. Result letter will be mailed to the patient. Note: At least 10% of breast cancer is not imaged by mammography. Dictated by: Dictated on workstation # [id number]
== END ==
LOC: RAD 12:43
PROVIDERS: ATTEND Obstetrics & Gynecology
DX: N60.02 Solitary cyst of left breast (principal)
CPT/HCPCS: 76642; 77065; G0279